=== PATIENT | male | born 1935 | race Caucasian/White ===

== ENCOUNTER 2018-12-13 18:16 | Observation (INO) ==
--- NOTE | 2018-12-13 22:09 | Internal Med History&Physical ---
<Michael Galindo - Last Filed: 12/13/18 22:56> Date of Encounter: 12/13/18 Time of Encounter: 22:15 Internal Medicine - H&P: HPI Chief complaint: Difficulty urinating Admitted From: Hospital to Hospital Transfer Plans for Post Hospital Care: Home History of present illness: Mr. Root is a 83 year old male with no significant medical history who presented to the hospital as a transfer from an outside facility for acute kidney injury. He states that for the past 3-4 days he has had constipation, straining and has had some rectal bleeding. In addition to this, he has had difficulty with urination and some lower abdominal pain. He has no significant medical history for anything like this in the past. He does not report any other symptoms like painful urination, fever, chills, sweats, or confusion. He has no chest pains, shortness of breath, or cough. He has no other acute complaints at this time. Significantly, He does say that he ate some grapefruit about 3-4 days ago and that is when his symptoms started. He's concerned that there may have been some chemicals on it. He did have some nausea after eating it. In the ED at the outside facility, the patient had labs significant for a serum creatinine of 2.6, WBC 12.7, and UA with blood. He had a CT abd/pelvis showing stranding anterior to the right iliopsoas muscle. In the ED he had a hensley placed with 1400mL UOP, which apparently relieved his abdominal pain. He was transferred to [facility] for further workup and management of MARIVEL and urinary obstruction. The patient is difficult to understand due to lack of dentures. Review of systems: Constitutional: Denies fevers, chills, weight loss, generalized fatigue Head/Neck: Denies SIU, neck stiffness EENT: Denies vision changes/blurriness, rhinorrhea, congestion, sore throat CVS: Denies chest pain, palpitations, YAO, orthopnea, edema, PND Pulm: Denies SOB, cough, sputum, hemoptysis, wheezing GI: Admits to abdominal tenderness, hematochezia, constiaption. Some nausea and vomiting a few days ago. : Denies dysuria, increased frequency, urgency, hematuria. Admits to hesitancy Heme: Denies ease of bleeding or bruising MSK: Denies joint pain, limited ROM Skin: Denies rashes, ulcers, color changes Neuro: Denies SIU, paresthesias, focal deficits, ataxia - Constitutional Vitals: Temp Pulse Resp BP Pulse Ox 99.0 F 71 16 115/71 96 12/13/18 22:00 12/13/18 22:00 12/13/18 22:00 12/13/18 22:00 12/13/18 22:00 Exam: Gen: Vitals noted. No acute distress. Speech is garbled from lack of dentures, but goal directed and sensical Eyes: anicteric sclerae, moist conjunctivae; no lid-lag; Pupils equal and reactive to light HENT: Atraumatic; oropharynx clear with moist mucous membranes and no mucosal ulcerations; normal hard and soft palate Neck: Trachea midline; supple, no thyromegaly or lymphadenopathy Cardiac: RRR, no murmur, +S1/S2 Pulmonary: CTA bilaterally, no wheezes, rales or rhonchi, equal chest expansion Abdomen: soft, nontender, no guarding. No masses or hepatosplenomegaly : Hensley in place MSK: ROM intact, no joint swelling noted Extremities: no BLE edema, nontender calf, no cyanosis or clubbing Skin: Normal temperature, turgor and texture; no rash, ulcers or subcutaneous nodules Neuro: moves all extremities, no focal deficits. Psych: Appropriate mood and behavior. A&Ox3 - Assessment and Plan (1) MARIVEL (acute kidney injury) Current Visit: Yes Status: Acute Assessment and plan: MARIVEL secondary to apparent bladder obstruction Unknown etiology, possibly secondary to prostatic enlargement Patient had Serum creatinine 2.6 at outside hospital, no history of kidney disease He does report taking ASA and Aleve for back pain Hensley relieved 1400mL urine Plan Continue hensley cath Begin LR @ 100mL/hr Avoid nephrotoxic agents Retroperitoneal US, Check for prostatic enlargement Repeat UA, check urine sodium/cr for FENA Repeat BMP in AM Consider nephro/urology consult if necessary (2) Constipation Current Visit: Yes Status: Acute Assessment and plan: Patient reports constipation Unclear etiology, however possible there is some dehydration component Patient will be receiving fluids Will start bowel regimen Qualifiers: Constipation type: unspecified constipation type Qualified Code(s): K59.00 - Constipation, unspecified (3) Urinary (tract) obstruction Current Visit: Yes Status: Acute Assessment and plan: 1400mL UOP with hensley insertion Retroperitoneal US in the AM for evidence of obstruction Consider urology/nephrology consult as needed (4) Hematochezia Current Visit: Yes Status: Acute Assessment and plan: Secondary to suspected hemorrhoids in setting of constipation (5) DVT prophylaxis Current Visit: Yes Status: Acute Assessment and plan: SCDs - Time Spent With Patient Total time spent is greater than 50% in coordination of care (as documented) at patient's floor/unit and/or counseling patient: <Go Soriano - Last Filed: 12/13/18 23:32> Date of Encounter: 12/13/18 All Systems PM: A 10-system review of systems was performed and is negative for pertinent findings except as documented above in the HPI. - Constitutional Vitals: Temp Pulse Resp BP Pulse Ox 99.0 F 71 16 115/71 96 12/13/18 22:00 12/13/18 22:00 12/13/18 22:00 12/13/18 22:00 12/13/18 22:00 - Time Spent With Patient Total time spent is greater than 50% in coordination of care (as documented) at patient's floor/unit and/or counseling patient: Greater than 35 minutes - Attending Attestation I performed a history and physical exam of the patient and discussed management with the resident. I reviewed the resident's note and agree with the documented findings and plan of care. Chuck Root is an 83 year old man who is here on transfer from [place] where he went with complaints of difficulty urinating. He required hensley insertion with immediate output of ~1400ml of urine with subsequent relief of his abdominal discomfort and distension. He denies a history of prostate problems. His creatinine was 2.6 so we will need to repeat for evolution as it is likely post-renal MARIVEL. While his CT did not identify any problems, it did not focus on the pelvis therefore will get a prostate ultrasound to assess for enlargement. Family history reviewed and found non-co ntributory. DORY REDD.
[2018-12-13] MEDS ORDERED: Naloxone 0.4 MG/ML INJ IVP PRN (22:29)
[2018-12-13] MEDS: Ringers Solution, Lactated 1,000 ML IVC SCH (23:14)
[2018-12-13] MEDS ORDERED: MOM Conc 10 ML UD.LIQ PO ONE (23:29)
[2018-12-14 03:26] LABS: Bilirubin,Urine Negative (Negative); Blood,Urine Large (Negative); Clarity,Urine Cloudy (Clear); Color,Urine Yellow (Yellow); Glucose,Urine (UA) Normal (Normal); Ketones,Urine Negative (Negative); Leukocyte Esterase,Urine Trace (Negative); Nitrite,Urine Negative (Negative); Protein,Urine 30 mg/dL (Neg-Trace); Specific Gravity,Urine 1.011 (1.010-1.025); Urobilinogen,Urine Normal (Normal)
[2018-12-14 03:29] LABS: Bacteria,Urine None Seen per hpf (None-Few); Hyaline Casts,Urine None Seen per lpf (None-Few); RBC,Urine TNTC per hpf (0-3); Squamous Epithelial Cell,Urine Moderate per lpf (None-Few)
[2018-12-14 03:35] LABS: Sodium, Urine 54.6 mEq/L
[2018-12-14 05:47] LABS: Basophils % 0.5 %; Eosinophils # 0.2 K/mcL (0.0-0.6); Eosinophils % 2.9 %; Hematocrit 38.9 % (37.5-50.1); Hemoglobin 13.1 g/dL (12.9-16.9); Immature Granulocytes % 0.4 % (0-4); Lymphocytes # 1.3 K/mcL (0.6-4.6); Mean Corpuscular HGB Conc 33.7 g/dL (31.6-35.5); Mean Corpuscular Hemoglobin 29.8 pg (28.0-33.3); Mean Corpuscular Volume 88.6 fL (83.0-100.0); Mean Platelet Volume 10.5 fL (9.4-12.4); Monocytes # 1.2 K/mcL (0.0-1.3); Monocytes % 14.8 %; Neutrophils # 5.1 K/mcL (1.6-8.9); Platelet Count 204 K/mcL (140-400); Red Blood Count 4.39 M/mcL (4.19-5.50); Red Cell Distribution Width 13.2 % (11.5-14.5); Segmented Neutrophils % 65.4 %; White Blood Count 7.8 K/mcL (4.3-11.1)
[2018-12-14 05:55] LABS: BUN/Creatinine Ratio 14 (6-26); Blood Urea Nitrogen 18 mg/dL (8-23); Calcium 8.9 mg/dL (8.6-10.3); Carbon Dioxide 28 mEq/L (23-29); Chloride 106 mEq/L (98-107); Glucose 100 mg/dL (70-105); Magnesium 2.3 mg/dL (1.6-2.6); Osmolality,Calculated 292 (280-300); Phosphorous 3.1 mg/dL (2.7-4.5); Potassium 3.7 mEq/L (3.5-5.1); Sodium 140 mEq/L (136-145); eGFR For African Americans > 60 (> 60); eGFR For Non-African Americans 53 (> 60)
[2018-12-14] MEDS: Ringers Solution, Lactated 1,000 ML IVC SCH (07:45)
[2018-12-14] MEDS: Sennosides/Docusate Sodium TABLET PO SCH ×2 (07:46→19:52)
--- NOTE | 2018-12-14 10:11 | Internal Med Progress Note ---
Hospitalist Progress Note - Encounter Date of Encounter: 12/14/18 Time of Encounter: 10:11 - Subjective Interval History: Patient was seen and examined at bedside. Discussed treatment plan with the patient which includes renal ultrasound possible urology consult. Continues to complain constipation we will continue with current regime. Patient verbalizes understanding treatment plan. - Exam Vitals: Temp Pulse Resp BP Pulse Ox 97.5 F L 67 20 121/75 98 12/14/18 08:13 12/14/18 08:13 12/14/18 08:13 12/14/18 08:13 12/14/18 08:13 Exam: Gen: Vitals noted. No acute distress. Speech is garbled from lack of dentures, but goal directed and sensical Eyes: anicteric sclerae, moist conjunctivae; no lid-lag; Pupils equal and reactive to light HENT: Atraumatic; oropharynx clear with moist mucous membranes and no mucosal ulcerations; normal hard and soft palate Neck: Trachea midline; supple, no thyromegaly or lymphadenopathy Cardiac: RRR, no murmur, +S1/S2 Pulmonary: CTA bilaterally, no wheezes, rales or rhonchi, equal chest expansion Abdomen: soft, nontender, no guarding. No masses or hepatosplenomegaly : Hernandez in place MSK: ROM intact, no joint swelling noted Extremities: no BLE edema, nontender calf, no cyanosis or clubbing Skin: Normal temperature, turgor and texture; no rash, ulcers or subcutaneous nodules Neuro: moves all extremities, no focal deficits. Psych: Appropriate mood and behavior. A&Ox3 - Assessment and Plan (1) MARIVEL (acute kidney injury) Current Visit: Yes Status: Acute Assessment and Plan: I MARIVEL secondary to apparent bladder obstruction Unknown etiology, possibly secondary to prostatic enlargement Patient had Serum creatinine 2.6 at outside hospital, no history of kidney disease He does report taking ASA and Aleve for back pain Hernandez relieved 1400mL urine in ED- cont to drain 12/14 Today creatinine slightly improved-1.28 Renal ultrasound pending at this time We will continue to monitor urine output as well as creatinine Consult nephrology as needed (2) Constipation Current Visit: Yes Status: Acute Assessment and Plan: Continues to experience constipation Continue with IV fluids as well as bowel regime (3) DVT prophylaxis Current Visit: Yes Status: Acute Assessment and Plan: SCD (4) Hematochezia Current Visit: Yes Status: Acute Assessment and Plan: Most likely secondary to constipation/hemorrhoids Continue to monitor hemoglobin which is stable at this time (5) Urinary (tract) obstruction Current Visit: Yes Status: Acute Assessment and Plan: 1400 and Lillian's urine output after Hernandez insertion in the ER-Hernandez continues to drain Retroperitoneal ultrasound pending at this time Urology/nephrology consult as needed - Time Spent with Patient Total time spent is greater than 50% in coordination of care (as documented) at patient's floor/unit and/or counseling patient: Internal Medicine: Result - Labs CBC & Chem 7: 12/14/18 05:07 12/14/18 05:07 Labs: Short CBC 12/14/18 Range/Units 05:07 WBC 7.8 (4.3-11.1) K/mcL Hgb 13.1 (12.9-16.9) g/dL Hct 38.9 (37.5-50.1) % Plt Count 204 (140-400) K/mcL Neutrophils # 5.1 (1.6-8.9) K/mcL BMP 12/14/18 05:07 Sodium 140 Potassium 3.7 Chloride 106 Carbon Dioxide 28 BUN 18 Creatinine 1.28 Glucose 100 Calcium 8.9 Urine 12/14/18 Range/Units 03:05 Urine Color Yellow (Yellow) Urine Clarity Cloudy A (Clear) Urine pH 6.0 (5.0-8.0) pH Units Ur Specific [place] 1.011 (1.010-1.025) Urine Protein 30 H (Neg-Trace) mg/dL Urine Glucose (UA) Normal (Normal) mg/dL Consult Discharge Plan - Plan Referrals: Shreyas Henley MD [Primary Care Provider] - (Appt has been requested. ) (2) Constipation Qualifiers: Constipation type: unspecified constipation type Qualified Code(s): K59.00 - Constipation, unspecified
--- NOTE | 2018-12-14 13:39 | Event Note ---
Date of Encounter: 12/14/18 Time of Encounter: 13:36 Nursing staff reports that patient had a BM with large amount of bright red blood in the toilet. Patient originally presented abd pain and rectal bleeding at outlying facility.Discussed with patient will GI eval patient
--- NOTE | 2018-12-14 14:18 | Urology - Consult Note ---
Date of Encounter: 12/14/18 Time of Encounter: 14:00 - Assessment and Plan (1) Urinary retention with incomplete bladder emptying Current Visit: Yes Status: Acute Assessment and plan: Patient is an 83-year-old male who presents with urinary retention and incomplete bladder emptying. Patient reports this is the first time he is ever required a urinary catheter. Patient has been started on Flomax daily. Patient underwent a reassuring renal and bladder ultrasound that did reveal an enlarged prostate. Patient does not routinely follow with a family physician, and there are no medical records available for review. I will order a PSA for baseline reference, and I anticipate his PSA to be somewhat elevated secondary to pr ostate volume, advanced age and an indwelling Hernandez catheter. Patient understands he will require an indwelling Hernandez catheter for approximately 1 week, and he will follow up with Dr. Gresham as an outpatient for a voiding trial prior to removal. Dr. Gresham will be in to reevaluate patient this afternoon. (2) MARIVEL (acute kidney injury) Current Visit: Yes Status: Acute Assessment and plan: Patient is an 83-year-old male who presents with acute kidney injury. Renal function appears to be improved with a serum creatinine of 1.28 and GFR 53. Renal function likely compromise secondary to outlet obstruction. Urology CN:HPI Consult date: 12/14/18 Reason for consult Urology: Other (urinary retention) Requesting physician: Roxane Salmeron History of present illness: Patient is an 83-year-old male who presents with a history of urinary retention. Hernandez catheter is currently indwelling and draining transparent, clear yellow urine sufficiently. Patient initially presented to [facility] emergency department with complaints of a 3-4 day history of constipation, rectal bleeding, dysuria and weak stream. Patient was found to have acute kidney injury and was subsequently transferred to [facility] for further evaluation. Patient underwent catheter placement with a urine output of 1.4 L. Patient has undergone a reassuring renal ultrasound revealing an enlarged prostate. Patient reports no prior history of urinary retention and states he has minimal voiding dysfunction at baseline. Patient reports nocturia 1 time per night, some post void dribbling and weak stream. Patient admits to a recent history of dysuria and urinary hesitancy, but he denies any flank pain, gross hematuria, urgency, frequency or incontinence. Patient states he underwent PSA screening approximately 15 years ago, and it was normal at that time. Patient denies any known family history of prostate cancer. Patient reports no significant past medical history and does not take any daily medications. Past Med Surg Social Fam HX - Past Medical History Medical history: no medical history Psychiatric history: no psych history - Past Surgical History Surgical History: no surgical history - Social History Smoking Status: Former smoker Alcohol use: occasionally Drug use: none - Additional Family History Additional family history: Patient denies known family history of malignancy Medications and Allergies Allergy/AdvReac Type Severity Reaction Status Date / Time No Known Allergies Allergy Verified 12/13/18 23:16 Review of Systems - Constitutional no chills, no fatigue, no fever(s) - EENT Nose, mouth and throat: no dizziness, no headache(s) - Cardiovascular no chest pain, no diaphoresis, no dyspnea - Respiratory no cough, no dyspnea - Gastrointestinal no abdominal pain, no nausea, no vomiting - Genitourinary change in urinary stream, difficulty urinating, dysuria, nocturia, post void dribbling, urinary hesitancy, no flank pain, no hematuria, no urinary frequency, no urinary incontinence, no urinary urgency - Musculoskeletal back pain, muscle weakness, other (arthritis ) - Integumentary no erythema, no rash - Neurological no confusion, no syncope - Psychiatric no anxiety, no confusion - Hematologic/Lymphatic no easy bleeding, no easy bruising - Allergic/Immunologic no throat swelling, no wheezing Exam Initial Vital Signs Temp Pulse Resp BP Pulse Ox 99.0 F 71 16 115/71 96 12/13/18 22:00 12/13/18 22:00 12/13/18 22:00 12/13/18 22:00 12/13/18 22:00 - General physical appearance Present: no distress, no pain - Eyes Present: PERRL, normal ocular movement - ENT Present: normal nares, no congestion, decreased hearing - Neck Present: no masses, trachea midline, no lymphadenopathy - Respiratory Present: normal respiratory effort - Cardiovascular Cardiovascular exam IM: RRR - Abdomen Abdomen: Present: soft, non tender, distended - Genitourinary other (Hernandez catheter is indwelling and draining transparent, clear yellow urine into bedside bag) - Integumentary Present: no rash, no abnormal pigmentation - Neurologic Present: normal coordination - Musculoskeletal Present: other (Normal posture) Urology Results - Labs 12/14/18 05:07 12/14/18 05:07 Abnormal lab results Est GFR (Non-Af Amer) 53 (> 60) L 12/14/18 05:07 Urine Clarity Cloudy (Clear) A 12/14/18 03:05 Urine Protein 30 mg/dL (Neg-Trace) H 12/14/18 03:05 Urine Blood Large (Negative) H 12/14/18 03:05 Ur Leukocyte Esterase Trace (Negative) H 12/14/18 03:05 Urine Microscopic RBC TNTC per hpf (0-3) H 12/14/18 03:05 Urine Microscopic WBC 5-15 per hpf (0-3) H 12/14/18 03:05 Ur Squamous Epith Cells Moderate per lpf (None-Few) H 12/14/18 03:05 Ur Culture Indicated? YES (NO) A 12/14/18 03:05 Diabetes panel 12/14/18 Range/Units 05:07 Sodium 140 (136-145) mEq/L Potassium 3.7 (3.5-5.1) mEq/L Chloride 106 (98-107) mEq/L Carbon Dioxide 28 (23-29) mEq/L BUN 18 (8-23) mg/dL Creatinine 1.28 (0.70-1.30) mg/dL Glucose 100 (70-105) mg/dL Calcium 8.9 (8.6-10.3) mg/dL Calcium panel 12/14/18 Range/Units 05:07 Calcium 8.9 (8.6-10.3) mg/dL Phosphorus 3.1 (2.7-4.5) mg/dL Pituitary panel 12/14/18 Range/Units 05:07 Sodium 140 (136-145) mEq/L Potassium 3.7 (3.5-5.1) mEq/L Chloride 106 (98-107) mEq/L Carbon Dioxide 28 (23-29) mEq/L BUN 18 (8-23) mg/dL Creatinine 1.28 (0.70-1.30) mg/dL Glucose 100 (70-105) mg/dL Calcium 8.9 (8.6-10.3) mg/dL Adrenal panel 12/14/18 Range/Units 05:07 Sodium 140 (136-145) mEq/L Potassium 3.7 (3.5-5.1) mEq/L Chloride 106 (98-107) mEq/L Carbon Dioxide 28 (23-29) mEq/L BUN 18 (8-23) mg/dL Creatinine 1.28 (0.70-1.30) mg/dL Glucose 100 (70-105) mg/dL Calcium 8.9 (8.6-10.3) mg/dL All other labs normal. - Imaging US - kidney/bladder: report reviewed Consult Discharge Plan - Plan Referrals: Shreyas Henley MD [Primary Care Provider] - (Appt has been requested. )
[2018-12-15 02:58] LABS: Basophils % 0.4 %; Eosinophils # 0.3 K/mcL (0.0-0.6); Eosinophils % 3.5 %; Hematocrit 39.2 % (37.5-50.1); Hemoglobin 13.1 g/dL (12.9-16.9); Immature Granulocytes % 0.3 % (0-4); Lymphocytes # 1.4 K/mcL (0.6-4.6); Lymphocytes % 18.4 %; Mean Corpuscular HGB Conc 33.4 g/dL (31.6-35.5); Mean Corpuscular Hemoglobin 29.2 pg (28.0-33.3); Mean Corpuscular Volume 87.5 fL (83.0-100.0); Monocytes # 1.1 K/mcL (0.0-1.3); Monocytes % 14.7 %; Neutrophils # 4.8 K/mcL (1.6-8.9); Platelet Count 208 K/mcL (140-400); Red Blood Count 4.48 M/mcL (4.19-5.50); Red Cell Distribution Width 13.2 % (11.5-14.5); Segmented Neutrophils % 62.7 %; White Blood Count 7.6 K/mcL (4.3-11.1)
[2018-12-15 03:21] LABS: BUN/Creatinine Ratio 21 (6-26); Blood Urea Nitrogen 21 mg/dL (8-23); Calcium 8.7 mg/dL (8.6-10.3); Carbon Dioxide 24 mEq/L (23-29); Chloride 105 mEq/L (98-107); Glucose 88 mg/dL (70-105); Osmolality,Calculated 288 (280-300); Potassium 3.4 mEq/L (3.5-5.1); Sodium 138 mEq/L (136-145); eGFR For African Americans > 60 (> 60); eGFR For Non-African Americans > 60 (> 60)
[2018-12-15] MEDS: Sennosides/Docusate Sodium TABLET PO SCH ×2 (11:19→19:48)
--- NOTE | 2018-12-15 11:51 | Urology Progress Note ---
Date of Encounter: 12/15/18 Time of Encounter: 11:15 - Assessment and Plan (1) Urinary retention with incomplete bladder emptying Current Visit: Yes Status: Acute Assessment and plan: Patient is an 83-year-old male who presents with urinary retention with incomplete bladder emptying. Patient is taking Flomax, and I explained he will need to continue this daily. I reviewed reassuring PSA results of 2.23 with patient. Patient will require a follow-up with Dr. Gresham within 1 week for a voiding trial. Catheter care instructions and leg bag with straps to be provided by nursing staff when patient is ready for discharge. (2) MARIVEL (acute kidney injury) Current Visit: Yes Status: Acute Assessment and plan: MARIVEL resolved with GFR >60. Progress Note Subjective: no new complaints Narrative: Patient seen and examined sitting upright in bed in no apparent distress. Hernandez catheter is indwelling and draining transparent, clear yellow urine into bedside bag. Objective Initial Vital Signs Temp Pulse Resp BP Pulse Ox 99.0 F 71 16 115/71 96 12/13/18 22:00 12/13/18 22:00 12/13/18 22:00 12/13/18 22:00 12/13/18 22:00 - General physical appearance Present: no distress, no pain - Respiratory Present: normal expansion, normal respiratory effort - Abdomen Present: soft, non tender. Absent: distended - Genitourinary Urine Appearance: Present: Clear - Integumentary Present: no rash, no abnormal pigmentation - Musculoskeletal Present: normal posture - Psychiatric Present: oriented to time, oriented to person, oriented to place, memory intact. Absent: speech is normal ([place]) - Labs 12/15/18 01:36 12/15/18 01:36 Diabetes panel 12/15/18 Range/Units 01:36 Sodium 138 (136-145) mEq/L Potassium 3.4 L (3.5-5.1) mEq/L Chloride 105 (98-107) mEq/L Carbon Dioxide 24 (23-29) mEq/L BUN 21 (8-23) mg/dL Creatinine 0.98 (0.70-1.30) mg/dL Glucose 88 (70-105) mg/dL Calcium 8.7 (8.6-10.3) mg/dL Calcium panel 12/15/18 Range/Units 01:36 Calcium 8.7 (8.6-10.3) mg/dL Pituitary panel 12/15/18 Range/Units 01:36 Sodium 138 (136-145) mEq/L Potassium 3.4 L (3.5-5.1) mEq/L Chloride 105 (98-107) mEq/L Carbon Dioxide 24 (23-29) mEq/L BUN 21 (8-23) mg/dL Creatinine 0.98 (0.70-1.30) mg/dL Glucose 88 (70-105) mg/dL Calcium 8.7 (8.6-10.3) mg/dL Adrenal panel 12/15/18 Range/Units 01:36 Sodium 138 (136-145) mEq/L Potassium 3.4 L (3.5-5.1) mEq/L Chloride 105 (98-107) mEq/L Carbon Dioxide 24 (23-29) mEq/L BUN 21 (8-23) mg/dL Creatinine 0.98 (0.70-1.30) mg/dL Glucose 88 (70-105) mg/dL Calcium 8.7 (8.6-10.3) mg/dL Consult Discharge Plan - Plan Referrals: Shreyas Henley MD [Primary Care Provider] - 12/23/18 1:00 pm ()
--- NOTE | 2018-12-15 12:38 | Gastroenterology Consult Note ---
Date of Encounter: 12/15/18 Time of Encounter: 10:25 - Assessment and plan (1) Hematochezia Current Visit: Yes Status: Acute Assessment and plan: Yesterday the patient had BM with large amount of bright red blood in toilet. Hgb 13.1 on admission and 13.1 today. Continue to monitor CBC and transfuse as needed. Plan for colonoscopy tomorrow. Clear liquid diet today, no red or purple. NPO at midnight. If unable tolerate NuLytely please use MiraLAX prep. If not clear by 6 AM, give 2 tap water enemas. (2) Constipation Current Visit: Yes Status: Acute Assessment and plan: Daily fiber supplement. Adequate water intake. Miralax up to twice daily as needed for constipation. Qualifiers: Constipation type: unspecified constipation type Qualified Code(s): K59.00 - Constipation, unspecified - Time Spent With Patient Total time spent is greater than 50% in coordination of care (as documented) at patient's floor/unit and/or counseling patient: GI History of Present Illness - Data of Consult Patient: new to practice Consult date: 12/15/18 Requesting Physician: Liliane Jones MD - Consult Narrative Reason for consult: Rectal bleeding History of present illness: Mr. Root is a 83 year old male with no PMHx presented to the hospital as a transfer from an outside facility for acute kidney injury. He states that for the past 3-4 days he has had constipation, straining and has had some rectal bleeding. Patient states he ate some grapefruit the day his symptoms started, and is concerned there are "chemicals" in his food. In addition to this, he has had difficulty with urination and some lower abdominal pain. In the ED hensley was placed with 1400mL UOP, which relieved his abdominal pain. Yesterday the patient had BM with large amount of bright red blood in toilet. Procedures: None NSAIDs: None Anticoagulation: None Past Med Surg Social Fam HX - Past Medical History Medical history: no medical history Psychiatric history: no psych history - Past Surgical History Surgical History: no surgical history - Social History Smoking Status: Former smoker Alcohol use: occasionally Drug use: none - Gastrointestinal Gastrointestinal: Present: as per HPI - Constitutional Constitutional: as per HPI - EENT Eyes: as per HPI Ears: Present: as per HPI Nose, mouth and throat: Present: as per HPI - Cardiovascular Cardiovascular ROS: Present: as per HPI - Respiratory Respiratory IM: Present: as per HPI - Genitourinary Genitourinary: Absent: change in color, Urinary frequency - Neurological ROS Neurological GI: Present: as per HPI - Hematologic/Lymphatic Hematologic/Lymphatic pediatric: Present: as per HPI - Musculoskeletal Musculoskeletal ROS GI: Present: as per HPI - Integumentary Integumentary GI: Present: as per HPI - Psychiatric ROS Psychiatric GI: Present: as per HPI - Endocrine Endocrine IM: Present: as per HPI - Constitutional Vitals: Temp Pulse Resp BP Pulse Ox 98.6 F 64 18 123/69 97 12/15/18 10:56 12/15/18 10:56 12/15/18 10:56 12/15/18 10:56 12/15/18 10:56 General appearance: Present: cooperative, A&O X 3, no acute distress, answers questions appropriately - Head Head exam: Present: atraumatic, normocephalic - Eye Eye exam: Present: normal appearance, sclera anicteric - ENT ENT exam: Present: mucous membranes moist - Neck Neck exam general surgery: Present: normal inspection, trachea midline - Respiratory Respiratory exam: Present: CTAB. Absent: rales, rhonchi - Cardiovascular Cardiovascular exam: Present: RRR, +S1, +S2 - GI/Abdominal GI/Abdominal exam: Present: soft, no peritoneal signs. Absent: distended, firm, guarding, tenderness - Rectal Rectal exam: Present: deferred - Extremities Exam Extremities exam: Present: warm - Neurological Exam Neurological exam: Present: no focal deficits - Psychiatric Psychiatric exam: Present: normal affect, normal mood - Skin Skin exam: Present: dry, intact, normal color, warm Results - Labs CBC & Chem 7: 12/15/18 01:36 12/15/18 01:36 Labs: Last Result 12/15/18 01:36 Calcium 8.7 Entire Visit 12/15/18 01:36 Hgb 13.1 Hct 39.2 - Impressions Impressions Retroperitoneum Ultrasound 12/14/18 10:30 IMPRESSION: 1. No abnormality in the kidneys. 2. Hensley catheter in the bladder. Prevoid bladder volume of 215 ml. Postvoid bladder volume of 119 ml. 3. Enlarged prostate gland measuring up to 6.4 cm. D/ / 12/14/2018 12:04:52 Parth Owens MD / romero Interpreting Provider: Parth Owens MD Consult Discharge Plan - Plan Referrals: Shreyas Henley MD [Primary Care Provider] - 12/23/18 1:00 pm ()
--- NOTE | 2018-12-15 13:37 | Internal Med Progress Note ---
Hospitalist Progress Note - Encounter Date of Encounter: 12/15/18 Time of Encounter: 11:00 - Subjective Interval History: Patient was seen and examined at bedside discussed treatment plan with the patient which includes continuation of Hernandez catheter following up with urology as well as GI evaluation and possible colonoscopy. Patient says that his bleed ing is caused by a bad grapefruit that had chemicals on it, explained to the patient that his bleeding has been going on for some time and we need to evaluate to make sure he has no malignancy or any other GI issues. Patient will be nothing by mouth after midnight patient verbalizes understanding he will have clear liquid diet today. - Exam Vitals: Temp Pulse Resp BP Pulse Ox 98.6 F 64 18 123/69 97 12/15/18 10:56 12/15/18 10:56 12/15/18 10:56 12/15/18 10:56 12/15/18 10:56 Exam: Gen: Vitals noted. No acute distress. Speech is garbled from lack of dentures, but goal directed and sensical Eyes: anicteric sclerae, moist conjunctivae; no lid-lag; Pupils equal and reactive to light HENT: Atraumatic; oropharynx clear with moist mucous membranes and no mucosal ulcerations; normal hard and soft palate Neck: Trachea midline; supple, no thyromegaly or lymphadenopathy Cardiac: RRR, no murmur, +S1/S2 Pulmonary: CTA bilaterally, no wheezes, rales or rhonchi, equal chest expansion Abdomen: soft, nontender, no guarding. No masses or hepatosplenomegaly : Hernandez in place MSK: ROM intact, no joint swelling noted Extremities: no BLE edema, nontender calf, no cyanosis or clubbing Skin: Normal temperature, turgor and texture; no rash, ulcers or subcutaneous nodules Neuro: moves all extremities, no focal deficits. Psych: Appropriate mood and behavior. A&Ox3 - Assessment and Plan (1) MARIVEL (acute kidney injury) Current Visit: Yes Status: Acute Assessment and Plan: I MARIVEL secondary to apparent bladder obstruction Unknown etiology, possibly secondary to prostatic enlargement Patient had Serum creatinine 2.6 at outside hospital, no history of kidney disease He does report taking ASA and Aleve for back pain Hernandez relieved 1400mL urine in ED- cont to drain 12/14 Today creatinine slightly improved-1.28 Renal ultrasound pending at this time We will continue to monitor urine output as well as creatinine Consult nephrology as needed 12/15 Creatinine is improved 0.98 today Renal ultrasound with no abnormalities in the kidneys and a large prostate gland measuring up to 6.4 cm Continue to monitor (2) Constipation Current Visit: Yes Status: Acute Assessment and Plan: Continues to experience constipation Continue with IV fluids as well as bowel regime 12/15 Patient had a large bowel movement yesterday per nursing report patient had a large amount of bright red blood in the toilet after a bowel movement (3) DVT prophylaxis Current Visit: Yes Status: Acute Assessment and Plan: SCD (4) Hematochezia Current Visit: Yes Status: Acute Assessment and Plan: Most likely secondary to constipation/hemorrhoids Continue to monitor hemoglobin which is stable at this time 12/15 Patient had a large bowel movement yesterday with large amount of bright red blood as well as/dark blood-according to the patient he has been experiencing constipation for 3 days with straining/ rectal bleeding Presented with lower abdominal pain-CT abd/pelvis showing stranding anterior to the right iliopsoas muscle.-Stool for occult blood GI has been consulted and patient will be nothing by mouth after midnight Received bowel prep for colonoscopy in the a.m. (5) Urinary (tract) obstruction Current Visit: Yes Status: Acute Assessment and Plan: 1400 and Lillian's urine output after Hernandez insertion in the ER-Hernandez continues to drain Retroperitoneal ultrasound pending at this time Urology/nephrology consult as needed 12/15 Retroperitoneal ultrasound IMPRESSION: 1. No abnormality in the kidneys. 2. Hernandez catheter in the bladder. Prevoid bladder volume of 215 ml. Postvoid bladder volume of 119 ml. 3. Enlarged prostate gland measuring up to 6.4 cm. Continue with Hernandez Urology did see the patient continue with Hernandez 1 week Continue with Tamsulosin - Time Spent with Patient Total time spent is greater than 50% in coordination of care (as documented) at patient's floor/unit and/or counseling patient: Internal Medicine: Result - Labs CBC & Chem 7: 12/15/18 01:36 12/15/18 01:36 Labs: Short CBC 12/15/18 Range/Units 01:36 WBC 7.6 (4.3-11.1) K/mcL Hgb 13.1 (12.9-16.9) g/dL Hct 39.2 (37.5-50.1) % Plt Count 208 (140-400) K/mcL Neutrophils # 4.8 (1.6-8.9) K/mcL BMP 12/15/18 01:36 Sodium 138 Potassium 3.4 L Chloride 105 Carbon Dioxide 24 BUN 21 Creatinine 0.98 Glucose 88 Calcium 8.7 - Impressions Impressions Retroperitoneum Ultrasound 12/14/18 10:30 IMPRESSION: 1. No abnormality in the kidneys. 2. Hernandez catheter in the bladder. Prevoid bladder volume of 215 ml. Postvoid bladder volume of 119 ml. 3. Enlarged prostate gland measuring up to 6.4 cm. D/ / 12/14/2018 12:04:52 Parth Owens MD / romero Interpreting Provider: Parth Owens MD Consult Discharge Plan - Plan Referrals: Shreyas Henley MD [Primary Care Provider] - 12/23/18 1:00 pm () (2) Constipation Qualifiers: Constipation type: unspecified constipation type Qualified Code(s): K59.00 - Constipation, unspecified
[2018-12-15] MEDS ORDERED: SODIUM CHLORIDE/NAHCO3/KCL/PEG 4,000 ML SOLN.RECON PO ONE (17:00)
[2018-12-16 06:19] LABS: Basophils % 0.6 %; Eosinophils # 0.2 K/mcL (0.0-0.6); Eosinophils % 2.6 %; Hematocrit 40.5 % (37.5-50.1); Hemoglobin 13.7 g/dL (12.9-16.9); Immature Granulocytes % 0.3 % (0-4); Lymphocytes # 1.2 K/mcL (0.6-4.6); Lymphocytes % 17.5 %; Mean Corpuscular HGB Conc 33.8 g/dL (31.6-35.5); Mean Corpuscular Hemoglobin 29.3 pg (28.0-33.3); Mean Corpuscular Volume 86.7 fL (83.0-100.0); Mean Platelet Volume 10.6 fL (9.4-12.4); Monocytes # 0.9 K/mcL (0.0-1.3); Monocytes % 13.7 %; Neutrophils # 4.3 K/mcL (1.6-8.9); Platelet Count 232 K/mcL (140-400); Red Blood Count 4.67 M/mcL (4.19-5.50); Red Cell Distribution Width 12.9 % (11.5-14.5); Segmented Neutrophils % 65.3 %; White Blood Count 6.6 K/mcL (4.3-11.1)
[2018-12-16 06:28] LABS: BUN/Creatinine Ratio 16 (6-26); Blood Urea Nitrogen 15 mg/dL (8-23); Calcium 8.8 mg/dL (8.6-10.3); Carbon Dioxide 26 mEq/L (23-29); Chloride 100 mEq/L (98-107); Glucose 94 mg/dL (70-105); Osmolality,Calculated 297 (280-300); Potassium 3.1 mEq/L (3.5-5.1); Sodium 143 mEq/L (136-145); eGFR For African Americans > 60 (> 60); eGFR For Non-African Americans > 60 (> 60)
[2018-12-16] MEDS ORDERED: Propofol 500 MG/50 ML INFUS..BTL ONE (06:59)
[2018-12-16] MEDS ORDERED: Lidocaine -MPF 2% 2 ML VIAL ONE (06:59)
--- NOTE | 2018-12-16 08:16 | Anesthesia Evaluation PreOp ---
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 Any Significant HX Other Medical History: Renal (acute kidney injury) Anesthesia History: No Prior Anesthetic Complications, Past Anesthesia (right shoulder) Alcohol Use: occasionally Drug use: none Medications and Allergies No Known Home Drugs 12/14/18 [History] Allergy/AdvReac Type Severity Reaction Status Date / Time No Known Allergies Allergy Verified 12/13/18 23:16 - Meds/Allergy Pre-op Review Medications Reviewed: Yes Allergies Reviewed: Yes Beta Blockers on Current Med List: No Anesthesia Results - Labs 12/16/18 05:19 12/16/18 05:19 Anesthesia Exam Selected Entries 12/16/18 08:05 Temperature 97.9 F Pulse Rate 64 Respiratory Rate 16 Blood Pressure 136/66 O2 Sat by Pulse Oximetry 100 Weight: 77kg NPO (# of Hours): 8 - HEENT Pupil (Motor): EOMI Mallampati: II Teeth: Edentulous Oral Opening: Greater than 3 - MEDICAL NUMERICAL CONTROL OPERATOR LOC: Oriented MEDICAL NUMERICAL CONTROL OPERATOR Motor: Normal RUE, Normal LUE, Normal RLE, Normal LLE, Normal Face MEDICAL NUMERICAL CONTROL OPERATOR Sensory: Normal: RUE, LUE, RLE, LLE, Face - Cardiac Rhythm: Regular Murmur: None - Pulmonary Breath Sounds: bilateral Clear Respiratory Effort: Symmetrical - Additional Findings speech is garbled due to being edentulous. Anesthesia Assess/Plan ASA Score: 2 Level of consciousness: Cooperative, Oriented Anesthetic Plan: MAC Monitoring Plan: Standard Monitors Recovery Plan: Other (Patient unable to read or write but is able to understand what we are doing. He gives verbal consent that is witnessed and he does place "X" on consent form.)
[2018-12-16] MEDS ORDERED: Potassium Chloride Elixir 20 MEQ/15 ML UDC PO ONE (11:36)
[2018-12-16] MEDS: Sennosides/Docusate Sodium TABLET PO SCH (13:31)
[2018-12-16 14:57] VITALS: BP 129/63
--- NOTE | 2018-12-16 15:14 | Discharge Summary ---
- NOTES TO OUTPATIENT PROVIDER Notes to Outpatient Provider: Urinary retention-Hernandez placed we will need to follow-up with urology 1 week-placed on Flomax. Had rectal bleeding-colonoscopy with large polyp removed biopsy pending Orders not resulted at time of discharge: Pending orders 12/16/18 09:03 Surgical Pathology [PTH] Routine 12/16/18 15:02 Potassium Stat Date of Encounter: 12/16/18 Time of Encounter: 15:12 - Discharge Diagnosis (1) MARIVEL (acute kidney injury) Priority: Secondary Status: Acute (2) Constipation Priority: Secondary Status: Acute Qualifiers: Constipation type: unspecified constipation type Qualified Code(s): K59.00 - Constipation, unspecified (3) Hematochezia Priority: Primary Status: Acute (4) Urinary (tract) obstruction Priority: Primary Status: Acute Hospital course: Mr. Root is a 83 year old male with no past medical history [facility] of [facility] abdominal pain -had had constipation for 3-4 days as well as some rectal bleeding and difficulty urinating and lower abdominal pain. Patient states he ate grapefruit about 3-4 days ago which he attributes to his symptoms he believes or chemicals on fruit and he had some nausea after eating at. Outlying facility his creatinine was elevated as well elevated white count. CT of abdomen and pelvis did show stranding anterior to the right ilopsoasas muscle. He had a Hernandez placed and 10 1400 mL return which relieved his abdominal pain. He was transferred to [facility] for further workup and AK I. He was given IV fluids and repeat chemistries showed improvement of AK I. He has evaluated by urology recommending continuing Hernandez for 1 week and placed on Flomax. During admission patient had a bowel movement with large amount of bright red blood. His hemoglobin had remained stable. GI was consulted patient did undergo colonoscopy and a large polyp was removed. Patient has not had any more abdominal pain has been tolerating oral intake lab work has been unremarkable renal function returned to baseline. Patient will be discharged home he will follow-up with urology as well as primary care provider as outpatient patient verbalizes understanding. He is hemodynamically stable and ready for discharge. - Time Spent with Patient Total time spent providing and/or coordinating discharge services: - Discharge Medications Prescriptions: New Tamsulosin [Flomax] 0.4 mg PO DAILY #30 capsule Polyethylene Glycol 3350 [MiraLAX] 17 gm PO DAILY PRN #30 powd.pack PRN Reason: Constipation Home Medications: Polyethylene Glycol 3350 [MiraLAX] 17 gm PO DAILY PRN #30 powd.pack 12/16/18 [Rx] Tamsulosin [Flomax] 0.4 mg PO DAILY #30 capsule 12/16/18 [Rx] Allergies/Adverse Reactions: Allergy/AdvReac Type Severity Reaction Status Date / Time No Known Allergies Allergy Verified 12/13/18 23:16 Date of admission: 12/13/18 21:48 Primary care physician: Shreyas Henley MD Consults: 12/14/18 13:34 Consult to Gastroenterology [CONS] Routine Consulting Provider: Gastroenterology Misti Reason for Consult: rectal bleeding Time Notified: 13:35 Call Completed: Yes 12/14/18 13:42 Consult to Urology [CONS] Routine Consulting Provider: Urology Misti Reason for Consult: urinary retention Time Notified: 13:42 Call Completed: Yes Discharging clinician: Roxane Salmeron Anticipated date of discharge: 12/16/18 - Constitutional Vitals: Temp Pulse Resp BP Pulse Ox 98.1 F 74 16 129/63 96 12/16/18 14:47 12/16/18 14:47 12/16/18 14:47 12/16/18 14:47 12/16/18 14:47 Exam: Skin: Free of rash and discoloration. Eyes: Sclera is white. There is no discharge from eyes. ENMT: Oral/pharyngeal mucosa is normal in appearance. Patient is endentulous There is no discharge from nose or ears. Respiratory: Normal breath sounds with no crackles and wheezes bilaterally. CV: Heart is regular with no gallop or murmur. GI: Abdomen is flat and soft with no palpable mass or visceromegaly. : There is no tenderness in patient's flanks bilaterally. Neuro exam: He has good strength in upper and lower extremities. He has normal eye movements. Psychiatric: He has normal affect. His thought process is appropriate to the situation. - Patient Status Disposition: Home, Self-Care Condition: Good Functional capacity at discharge: independent ambulation Overall status at discharge: patient is back to baseline - Discharge Instructions Follow Up With: Shreyas Henley MD [Primary Care Provider] - 12/23/18 1:00 pm () - Diet and Activity Activity: increase activity as tolerated Diet: advance to your usual diet
== END 2018-12-16 16:55 | disposition home or self-care (01) ==
LOC: 3BNU
PROVIDERS: ADMIT Internal Medicine; ATTEND Internal Medicine

== ENCOUNTER 2019-01-03 20:59 | Inpatient (IN) ==
[2019-01-03] MEDS ORDERED: Naloxone 0.4 MG/ML INJ IVP PRN ×2 (22:41)
--- NOTE | 2019-01-03 23:17 | Internal Med History&Physical ---
<Tian Shaffer - Last Filed: 01/04/19 08:24> Date of Encounter: 01/03/19 Internal Medicine - H&P: [facility] History of present illness: Mr. Root is a 83 year old male Internal Medicine - H&P: Meds Polyethylene Glycol 3350 [MiraLAX] 17 gm PO DAILY PRN #30 powd.pack 12/16/18 [Rx] Tamsulosin [Flomax] 0.4 mg PO DAILY #30 capsule 12/16/18 [Rx] Allergy/AdvReac Type Severity Reaction Status Date / Time No Known Allergies Allergy Verified 12/13/18 23:16 All Systems PM: A 10-system review of systems was performed and is negative for pertinent findings except as documented above in the HPI. - Constitutional Vitals: Temp Pulse Resp BP Pulse Ox 98.8 F 81 18 109/66 97 01/04/19 07:02 01/04/19 07:02 01/04/19 07:02 01/04/19 07:02 01/04/19 07:02 Internal Med - H&P Results - Labs CBC & Chem 7: 01/04/19 04:52 01/04/19 04:52 Labs: Short CBC 01/03/19 01/04/19 Range/Units 23:22 04:52 WBC 9.5 6.8 (4.3-11.1) K/mcL Hgb 13.6 12.2 L (12.9-16.9) g/dL Hct 40.1 36.2 L (37.5-50.1) % Plt Count 355 315 (140-400) K/mcL Neutrophils # 7.5 5.1 (1.6-8.9) K/mcL BMP 01/03/19 01/04/19 23:22 04:52 Sodium 137 140 Potassium 4.6 4.4 Chloride 104 113 H Carbon Dioxide 17 L 16 L BUN 99 H 71 H Creatinine 13.72 H 8.11 H Glucose 109 H 97 Calcium 9.4 8.9 Cardiac Enzymes 01/03/19 01/04/19 Range/Units 23:22 04:52 Troponin I < 0.03 < 0.03 (< 0.04) ng/mL Liver Function 01/04/19 Range/Units 04:52 Total Bilirubin 0.3 (0.3-1.0) mg/dL AST 7 L (13-39) Units/L ALT 7 (7-52) Units/L Alkaline Phosphatase 44 (34-104) Units/L Albumin 3.0 L (3.5-5.7) g/dL Urine 01/04/19 Range/Units 06:10 Urine Color Yellow (Yellow) Urine Clarity Clear (Clear) Urine pH 5.5 (5.0-8.0) pH Units Ur Specific [place] 1.015 (1.010-1.025) Urine Protein Negative (Neg-Trace) mg/dL Urine Glucose (UA) Normal (Normal) mg/dL - Impressions ITS Impressions Chest X-Ray 01/03/19 22:45 IMPRESSION: No acute cardiopulmonary findings. Bibasilar discoid atelectasis versus scarring. D/ / Luis Angel Hicks / Luis Angel Hicks Interpreting Provider: Luis Angel Hicks - Time Spent With Patient Total time spent is greater than 50% in coordination of care (as documented) at patient's floor/unit and/or counseling patient: - Attending Attestation I saw and evaluated the patient. I reviewed the residents note, performed my own physical examination and agree with findings and plan as documented in the residents note. Patient seen and examined on 01/04/19. Patient presented to the ER with rash in the inner thighs, back and chest. Started on antibiotics over the weekend which could be the source. No hives or respiratory symptoms. Patient has had improvement in his MARIVEL and creatinine as well. We will follow up with recommendations from urology and nephrology today. Continue to hold bactrim. Continue IV fluid boluses. <Everette Vee - Last Filed: 01/04/19 09:27> Date of Encounter: 01/04/19 Time of Encounter: 23:58 Internal Medicine - H&P: HPI History of present illness: Mr. Root is an 83-year-old male with no significant PMH who presented to [facility] on 01/03/19 as a transfer from Agency. Originally presented to Agency ED with sharp chest pain on inspiration. Also complained of a rash that had developed on Wednesday and was progressively getting worse. He was started on Bactrim on 12/22. He was noted to have a macular, red diffuse rash. He reports that the pain began gradually, and does not radiate. His initial vitals on arrival to Agency were temperature 99.8, pulse 75, respiratory rate 16, BP 108/75, and O2 saturation 95% on room air. Hernandez catheter was placed, which drained approximat joaquim 1000 mL of urine, which was maria elena colored. Labs showed Hb 12.5, BUN 120, and Cr 20.76. UA demonstrated red colored urine that was cloudy in appearance, with a large amount of blood, moderate amount of leukocyte esterase. D-dimer was elevated at 676. CXR demonstrated no evidence of PNA, CHF, or pleural effusion. His EKG demonstrated RBBB. Per chart review, patient had presented on 12/13 as a transfer from outside hospital for MARIVEL. He at the time, he had complained of constipation and had some rectal bleeding. Also reported difficulty in urination. His Cr was shown to be 2.6. Hernandez catheter was placed, which relieved 1400 mL of UOP. He was subsequently transferred to [place] for further management. Renal U/S demonstrated a prostate gland measuring 6.4 cm. Urology was consulted, who ordered a PSA for baseline reference and started patient on Flomax daily. Hernandez was left in place during last admission, and creatinine subsequently improved. Per urology progress note on 12/15, patient scheduled for a follow-up visit with Dr. Gresham within 1 week for a voiding trial. Per ECW note of Dr. Beckman on 12/22: Patient passed his voiding trial. He was prescribed Bactrim DS to sterilize his bladder. He was instructed to continue Flomax, and was instructed to follow up in 3-4 weeks with postvoid residual. During my interview, patient reported that he was having significant discomfort in the area of his rash. Rash is located on the inner aspect of both thighs. He denies having any suprapubic or abdominal pain. Also denies fever, chills, nausea, vomiting, or malaise. He reports that the last time he urinated was earlier in the day, and denies having any difficulty during that time. A repeat creatinine was drawn, which showed that his creatinine is improving from his original presentation to Agency. Our plan is to consult both nephrology and urology and follow recommendations. In the meantime, Bactrim will be held and we will administer fluid boluses for hydration. Past Med Surg Social Fam HX - Past Medical History Medical history: no medical history Psychiatric history: no psych history - Past Surgical History Surgical History: no surgical history - Social History Smoking Status: Former smoker Alcohol use: occasionally Drug use: none All Systems PM: A 10-system review of systems was performed and is negative for pertinent findings except as documented above in the HPI. - Constitutional Vitals: Temp Pulse Resp BP Pulse Ox 98.3 F 86 17 127/66 97 01/03/19 22:49 01/03/19 22:49 01/03/19 22:49 01/03/19 22:49 01/03/19 22:49 Exam: General: Conversant, somewhat difficult to understand due to lack of teeth Head: atraumatic, normocephalic Eye: PERRL, EOMI, conjuntiva pink, sclera anicteric Neck: Supple, trachea midline; No lymphadenopathy Respiratory: CTAB. No accessory muscle use, wheezes, rales, or rhonchi Cardiovascular: RRR, +S1, +S2; no murmurs, rubs, gallops Abdomen: Soft, nontender Extremities: warm, radial pulses palpable and symmetrical Neurological: No focal deficits noted Psychiatric: Normal affect, normal mood Skin: Macular rash present on medial aspect of thighs bilaterally, upper chest and neck, and upper back Other: Hernandez bag observed at bedside; contains approximately 700 mL of orange- colored urine Internal Med - H&P Results - Labs CBC & Chem 7: 01/04/19 04:52 01/04/19 04:52 - Assessment and Plan (1) MARIVEL (acute kidney injury) Current Visit: Yes Status: Acute Assessment and plan: Assessment - Likely secondary to bladder obstruction - Patient had a recent admission with a similar presentation; was found to have an enlarged prostate - Followed up with urology and passed a voiding test - Initial creatinine was the 20s, has since decreased to 13 Plan - Continue Hernandez catheter - Urinalysis ordered and currently pending - Normal saline at 100 mL per hour - We will continue to administer fluid boluses - Renally dose medications, avoid nephrotoxins - Nephrology and urology consulted for further recommendations (2) Skin rash Current Visit: Yes Status: Acute Assessment and plan: - Patient presented with a macular rash present on the inner thighs, upper back, bilateral flanks, and upper chest - He reports that this rash appeared shortly after he started his antibiotic - He was prescribed Bactrim in the outpatient setting by urology to sterilize his bladder - He denies having a rash like this in the past - Denies itching or pain in the area, but does complain of some mild discomfort Plan - Hold Bactrim - Administer Benadryl if needed (3) DVT prophylaxis Current Visit: Yes Status: Acute Assessment and plan: Heparin SQ - Time Spent With Patient Total time spent is greater than 50% in coordination of care (as documented) at patient's floor/unit and/or counseling patient:
[2019-01-03 23:35] LABS: Basophils % 0.2 %; Eosinophils # 0.2 K/mcL (0.0-0.6); Eosinophils % 1.9 %; Hematocrit 40.1 % (37.5-50.1); Hemoglobin 13.6 g/dL (12.9-16.9); Immature Granulocytes % 0.3 % (0-4); Lymphocytes # 0.8 K/mcL (0.6-4.6); Lymphocytes % 7.9 %; Mean Corpuscular HGB Conc 33.9 g/dL (31.6-35.5); Mean Corpuscular Hemoglobin 28.9 pg (28.0-33.3); Mean Corpuscular Volume 85.3 fL (83.0-100.0); Mean Platelet Volume 10.2 fL (9.4-12.4); Monocytes % 10.3 %; Neutrophils # 7.5 K/mcL (1.6-8.9); Platelet Count 355 K/mcL (140-400); Red Cell Distribution Width 13.2 % (11.5-14.5); Segmented Neutrophils % 79.4 %; White Blood Count 9.5 K/mcL (4.3-11.1)
[2019-01-03 23:48] LABS: INR 1.2; Prothrombin Time 13.3 Seconds (9.4-12.1)
[2019-01-03 23:54] LABS: Calcium 9.4 mg/dL (8.6-10.3); Potassium 4.6 mEq/L (3.5-5.1)
[2019-01-04] MEDS: 0.9 % Sodium Chloride 1,000 ML IVC SCH ×2 (00:46→10:06)
[2019-01-04 05:23] LABS: Basophils % 0.1 %; Eosinophils # 0.2 K/mcL (0.0-0.6); Eosinophils % 2.6 %; Hematocrit 36.2 % (37.5-50.1); Hemoglobin 12.2 g/dL (12.9-16.9); Immature Granulocytes % 0.4 % (0-4); Lymphocytes # 0.6 K/mcL (0.6-4.6); Lymphocytes % 8.4 %; Mean Corpuscular HGB Conc 33.7 g/dL (31.6-35.5); Mean Corpuscular Hemoglobin 28.7 pg (28.0-33.3); Mean Corpuscular Volume 85.2 fL (83.0-100.0); Mean Platelet Volume 10.3 fL (9.4-12.4); Monocytes # 0.9 K/mcL (0.0-1.3); Monocytes % 13.2 %; Neutrophils # 5.1 K/mcL (1.6-8.9); Platelet Count 315 K/mcL (140-400); Red Blood Count 4.25 M/mcL (4.19-5.50); Red Cell Distribution Width 13.2 % (11.5-14.5); Segmented Neutrophils % 75.3 %; White Blood Count 6.8 K/mcL (4.3-11.1)
[2019-01-04 05:36] LABS: Albumin/Globulin Ratio 0.9 (1.1-2.2); Bilirubin,Total 0.3 mg/dL (0.3-1.0); Calcium 8.9 mg/dL (8.6-10.3); Globulin 3.2 g/dL (2.4-3.5); Magnesium 2.3 mg/dL (1.6-2.6); Phosphorous 4.4 mg/dL (2.7-4.5); Potassium 4.4 mEq/L (3.5-5.1); Total Protein 6.2 g/dL (6.4-8.9)
[2019-01-04 06:25] LABS: Bilirubin,Urine Negative (Negative); Blood,Urine Moderate (Negative); Clarity,Urine Clear (Clear); Color,Urine Yellow (Yellow); Glucose,Urine (UA) Normal (Normal); Ketones,Urine 15 mg/dL (Negative); Leukocyte Esterase,Urine Negative (Negative); Nitrite,Urine Negative (Negative); PH,Urine 5.5 pH Units (5.0-8.0); Protein,Urine Negative (Neg-Trace); Specific Gravity,Urine 1.015 (1.010-1.025); Urobilinogen,Urine Normal (Normal)
[2019-01-04 06:27] LABS: Bacteria,Urine None Seen per hpf (None-Few); Hyaline Casts,Urine None Seen per lpf (None-Few); Squamous Epithelial Cell,Urine Few per lpf (None-Few)
[2019-01-04 06:34] LABS: Sodium, Urine 73.2 mEq/L
--- NOTE | 2019-01-04 08:45 | Urology - Consult Note ---
<Rayne Goss N - Last Filed: 01/04/19 08:40> Date of Encounter: 01/04/19 Time of Encounter: 07:40 - Assessment and Plan (1) MARIVEL (acute kidney injury) Current Visit: Yes Status: Acute Assessment and plan: Patient is an 83-year-old male who presents with acute kidney injury secondary to bladder outlet obstruction and urinary retention. Hernandez catheter is indwelling and draining sufficiently. Serum creatinine has improved from 13.72 to 8.11. (2) Urinary retention with incomplete bladder emptying Current Visit: Yes Status: Acute Assessment and plan: Patient is an 83-year-old male who presents with urinary retention. Hernandez catheter is indwelling and draining sufficiently. PSA was previously reassuring at 2.2. 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 His tamsulosin could be increased to twice daily, however, given his age and unsteadiness, I would be concerned for increased fall risk with the side effect of dizziness. Patient will require indwelling Hernandez catheter for at least one week, and we will arrange for an outpatient follow-up with Dr. Gresham to further discuss management options for his retention. Urology CN:HPI Consult date: 01/04/19 Reason for consult Urology: Other (urinary retention) Requesting physician: Everette Vee History of present illness: Patient is an 83-year-old male who presents with urinary retention and acute kidney injury. Patient initially presented to [facility] where a catheter was placed in the emergency department draining over 1 L of urine. Patient was subsequently transferred to [facility]. Patient was recently admitted to the hospital for urinary retention and hematochezia and discharged on 12/16/2018. 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 Patient followed up as an outpatient with Dr. Gresham on 12/22/2018 where he underwent a voiding trial and was placed on oral Bactrim. Patient presents with a rash, possibly a drug eruption from the oral Bactrim. Patient admits to ongoing urinary hesitancy, postvoid dribbling and weak stream. Patient states he has been taking Flomax daily. Currently, patient is sitting upright in bed in no apparent distress, and Hernandez catheter is indwelling draining transparent, clear yellow urine into bedside bag. Past Med Surg Social Fam HX - Past Medical History Medical history: no medical history Psychiatric history: no psych history - Past Surgical History Surgical History: no surgical history - Social History Smoking Status: Former smoker Alcohol use: none, occasionally Drug use: none - Additional Family History Additional family history: Patient denies any known family history of malignancy Medications and Allergies Tamsulosin [Flomax] 0.4 mg PO DAILY #30 capsule 12/16/18 [Rx] Allergy/AdvReac Type Severity Reaction Status Date / Time sulfamethoxazole AdvReac See Verified 01/04/19 12:13 [From Bactrim] Comments trimethoprim [From Bactrim] AdvReac See Verified 01/04/19 12:13 Comments Review of Systems - Constitutional no chills, no fever(s) - EENT Nose, mouth and throat: no dizziness, no headache(s) - Cardiovascular no chest pain, no diaphoresis, no dyspnea - Respiratory no cough, no dyspnea - Gastrointestinal no abdominal pain, no nausea, no vomiting - Genitourinary difficulty urinating, nocturia, post void dribbling, urinary frequency, urinary hesitancy, urinary incontinence, urinary urgency, no dysuria, no flank pain, no hematuria - Musculoskeletal no back pain, no muscle weakness - Integumentary no erythema, no rash - Neurological no confusion, no syncope - Psychiatric no anxiety, no confusion - Hematologic/Lymphatic no easy bleeding, no easy bruising - Allergic/Immunologic no throat swelling, no wheezing Exam Initial Vital Signs Temp Pulse Resp BP Pulse Ox 98.3 F 86 17 127/66 97 01/03/19 22:49 01/03/19 22:49 01/03/19 22:49 01/03/19 22:49 01/03/19 22:49 - General physical appearance Present: no distress, no pain - Eyes Present: PERRL, normal ocular movement - ENT Present: no congestion, decreased hearing - Neck Present: no masses, trachea midline, no lymphadenopathy - Cardiovascular Cardiovascular exam IM: RRR - Abdomen Abdomen: Present: soft, non tender. Absent: distended - Genitourinary other (Hernandez catheter is indwelling and draining transparent, serial urine into bedside bag) - Integumentary Present: no rash, no abnormal pigmentation - Neurologic Present: normal coordination - Musculoskeletal Present: other (Normal posture) Urology Results - Labs 01/04/19 04:52 01/04/19 04:52 Abnormal lab results Hgb 12.2 g/dL (12.9-16.9) L 01/04/19 04:52 Hct 36.2 % (37.5-50.1) L 01/04/19 04:52 PT 13.3 Seconds (9.4-12.1) H 01/03/19 23:22 Chloride 113 mEq/L (98-107) H 01/04/19 04:52 Carbon Dioxide 16 mEq/L (23-29) L 01/04/19 04:52 BUN 71 mg/dL (8-23) H 01/04/19 04:52 Creatinine 8.11 mg/dL (0.70-1.30) H 01/04/19 04:52 Est GFR ( Amer) 8 (> 60) L 01/04/19 04:52 Est GFR (Non-Af Amer) 6 (> 60) L 01/04/19 04:52 Glucose 109 mg/dL (70-105) H 01/03/19 23:22 Calculated Osmolality 311 (280-300) H 01/04/19 04:52 AST 7 Units/L (13-39) L 01/04/19 04:52 Creatine Kinase 29 Units/L (30-223) L 01/04/19 04:52 B-Natriuretic Peptide 241 pg/mL (Less than 100) H 01/04/19 04:52 Serum Total Protein 6.2 g/dL (6.4-8.9) L 01/04/19 04:52 Albumin 3.0 g/dL (3.5-5.7) L 01/04/19 04:52 Albumin/Globulin Ratio 0.9 (1.1-2.2) L 01/04/19 04:52 Urine Ketones 15 mg/dL (Negative) H 01/04/19 06:10 Urine Blood Moderate (Negative) H 01/04/19 06:10 Urine Microscopic RBC 5-15 per hpf (0-3) H 01/04/19 06:10 Urine Microscopic WBC 3-5 per hpf (0-3) H 01/04/19 06:10 Diabetes panel 01/03/19 01/04/19 Range/Units 23:22 04:52 Sodium 137 140 (136-145) mEq/L Potassium 4.6 4.4 (3.5-5.1) mEq/L Chloride 104 113 H (98-107) mEq/L Carbon Dioxide 17 L 16 L (23-29) mEq/L BUN 99 H 71 H (8-23) mg/dL Creatinine 13.72 H 8.11 H (0.70-1.30) mg/dL Glucose 109 H 97 (70-105) mg/dL Calcium 9.4 8.9 (8.6-10.3) mg/dL AST 7 L (13-39) Units/L ALT 7 (7-52) Units/L Alkaline Phosphatase 44 (34-104) Units/L Albumin 3.0 L (3.5-5.7) g/dL Calcium panel 01/03/19 01/04/19 Range/Units 23:22 04:52 Calcium 9.4 8.9 (8.6-10.3) mg/dL Phosphorus 4.4 (2.7-4.5) mg/dL Albumin 3.0 L (3.5-5.7) g/dL Pituitary panel 01/03/19 01/04/19 Range/Units 23:22 04:52 Sodium 137 140 (136-145) mEq/L Potassium 4.6 4.4 (3.5-5.1) mEq/L Chloride 104 113 H (98-107) mEq/L Carbon Dioxide 17 L 16 L (23-29) mEq/L BUN 99 H 71 H (8-23) mg/dL Creatinine 13.72 H 8.11 H (0.70-1.30) mg/dL Glucose 109 H 97 (70-105) mg/dL Calcium 9.4 8.9 (8.6-10.3) mg/dL Adrenal panel 01/03/19 01/04/19 Range/Units 23:22 04:52 Sodium 137 140 (136-145) mEq/L Potassium 4.6 4.4 (3.5-5.1) mEq/L Chloride 104 113 H (98-107) mEq/L Carbon Dioxide 17 L 16 L (23-29) mEq/L BUN 99 H 71 H (8-23) mg/dL Creatinine 13.72 H 8.11 H (0.70-1.30) mg/dL Glucose 109 H 97 (70-105) mg/dL Calcium 9.4 8.9 (8.6-10.3) mg/dL Total Bilirubin 0.3 (0.3-1.0) mg/dL AST 7 L (13-39) Units/L ALT 7 (7-52) Units/L Alkaline Phosphatase 44 (34-104) Units/L Albumin 3.0 L (3.5-5.7) g/dL All other labs normal. Consult Discharge Plan - Plan Referrals: NONE,PCP [Primary Care Provider] - <Nithin Farrell - Last Filed: 01/04/19 16:41> Date of Encounter: 01/04/19 Urology CN:HPI History of present illness: Patient was seen and examined independently. I agree with the plan as written by aRyne Goss. At this time the patient has what appears to be obstructive uropathy which has caused his acute renal insufficiency. Serum creatinine improving after catheter drainage of approximately 2200 mL. Patient will need to keep his catheter at this time. No indication or need for upper tract imaging unless serum creatinine fails to resolve. We will continue to follow along while patient in hospital. Past Med Surg Social Fam HX - Past Medical History Additional medical history: Urinary retention - Family History Father Name: Patient denies any known family history of prostate cancer Exam Initial Vital Signs Temp Pulse Resp BP Pulse Ox 98.3 F 86 17 127/66 97 01/03/19 22:49 01/03/19 22:49 01/03/19 22:49 01/03/19 22:49 01/03/19 22:49 Urology Results - Labs 01/04/19 15:52 01/04/19 04:52 Abnormal lab results RBC 4.00 M/mcL (4.19-5.50) L 01/04/19 15:52 Hgb 11.5 g/dL (12.9-16.9) L 01/04/19 15:52 Hct 34.8 % (37.5-50.1) L 01/04/19 15:52 PT 13.6 Seconds (9.4-12.1) H 01/04/19 15:52 Heparin Anti-Xa, Unfract 0.01 IU/mL (0.30-0.70) L 01/04/19 15:52 Chloride 113 mEq/L (98-107) H 01/04/19 04:52 Carbon Dioxide 16 mEq/L (23-29) L 01/04/19 04:52 BUN 71 mg/dL (8-23) H 01/04/19 04:52 Creatinine 8.11 mg/dL (0.70-1.30) H 01/04/19 04:52 Est GFR ( Amer) 8 (> 60) L 01/04/19 04:52 Est GFR (Non-Af Amer) 6 (> 60) L 01/04/19 04:52 Glucose 109 mg/dL (70-105) H 01/03/19 23:22 Calculated Osmolality 311 (280-300) H 01/04/19 04:52 AST 7 Units/L (13-39) L 01/04/19 04:52 Creatine Kinase 27 Units/L (30-223) L 01/04/19 10:40 B-Natriuretic Peptide 241 pg/mL (Less than 100) H 01/04/19 04:52 Serum Total Protein 6.2 g/dL (6.4-8.9) L 01/04/19 04:52 Albumin 3.0 g/dL (3.5-5.7) L 01/04/19 04:52 Albumin/Globulin Ratio 0.9 (1.1-2.2) L 01/04/19 04:52 Urine Ketones 15 mg/dL (Negative) H 01/04/19 06:10 Urine Blood Moderate (Negative) H 01/04/19 06:10 Urine Microscopic RBC 5-15 per hpf (0-3) H 01/04/19 06:10 Urine Microscopic WBC 3-5 per hpf (0-3) H 01/04/19 06:10 Diabetes panel 01/03/19 01/04/19 Range/Units 23:22 04:52 Sodium 137 140 (136-145) mEq/L Potassium 4.6 4.4 (3.5-5.1) mEq/L Chloride 104 113 H (98-107) mEq/L Carbon Dioxide 17 L 16 L (23-29) mEq/L BUN 99 H 71 H (8-23) mg/dL Creatinine 13.72 H 8.11 H (0.70-1.30) mg/dL Glucose 109 H 97 (70-105) mg/dL Calcium 9.4 8.9 (8.6-10.3) mg/dL AST 7 L (13-39) Units/L ALT 7 (7-52) Units/L Alkaline Phosphatase 44 (34-104) Units/L Albumin 3.0 L (3.5-5.7) g/dL Calcium panel 01/03/19 01/04/19 Range/Units 23:22 04:52 Calcium 9.4 8.9 (8.6-10.3) mg/dL Phosphorus 4.4 (2.7-4.5) mg/dL Albumin 3.0 L (3.5-5.7) g/dL Pituitary panel 01/03/19 01/04/19 Range/Units 23:22 04:52 Sodium 137 140 (136-145) mEq/L Potassium 4.6 4.4 (3.5-5.1) mEq/L Chloride 104 113 H (98-107) mEq/L Carbon Dioxide 17 L 16 L (23-29) mEq/L BUN 99 H 71 H (8-23) mg/dL Creatinine 13.72 H 8.11 H (0.70-1.30) mg/dL Glucose 109 H 97 (70-105) mg/dL Calcium 9.4 8.9 (8.6-10.3) mg/dL Adrenal panel 01/03/19 01/04/19 Range/Units 23:22 04:52 Sodium 137 140 (136-145) mEq/L Potassium 4.6 4.4 (3.5-5.1) mEq/L Chloride 104 113 H (98-107) mEq/L Carbon Dioxide 17 L 16 L (23-29) mEq/L BUN 99 H 71 H (8-23) mg/dL Creatinine 13.72 H 8.11 H (0.70-1.30) mg/dL Glucose 109 H 97 (70-105) mg/dL Calcium 9.4 8.9 (8.6-10.3) mg/dL Total Bilirubin 0.3 (0.3-1.0) mg/dL AST 7 L (13-39) Units/L ALT 7 (7-52) Units/L Alkaline Phosphatase 44 (34-104) Units/L Albumin 3.0 L (3.5-5.7) g/dL All other labs normal.
--- NOTE | 2019-01-04 09:22 | Nephrology Consult Note ---
Date of Encounter: 01/04/19 Time of Encounter: 10:58 Assessment and Plan (1) MARIVEL (acute kidney injury) Current Visit: Yes Status: Acute This an 83-year-old male with no significant past medical history who initially presented to [facility] has a transfer from [facility]. - Complained of abdominal pain and urinary retention on admission - Hensley catheter was placed in the ED, and drained nearly 1000 mL of maria elena colored urine. Initial BMP showed BUN/Cr = 120/20.76 - Urinalysis did not show red colored urine, cloudy in appearance, with large blood, moderate leukocyte esterase - BMP after Hensley catheter placed and urine voided showed creatinine = 13 - Recent admission on 12/13 due to acute kidney injury. Patient had been compl aining with difficulty with urination and that time. Hensley catheter was placed and relieved 1400 mL of urine. Renal ultrasound done which showed enlarged prostate. Patient was started on Flomax and discharged with Hensley catheter in place. Followed up with urology 1 week later and successfully completed voiding trial. Hensley was DC'd. - Patient has had significant urine output as of this morning. - BUN/Cr = 71/8.11 as of this a.m. - Patient remains asymptomatic - Urinalysis essentially negative. Did show moderate blood and microscopic RBCs. No signs of infection. - Urology on board regarding enlarged prostate PLAN: Chuck presents with acute kidney injury which is likely secondary to urinary retention due to enlarged prostate. Patient did experience relief with Hensley catheter placement and after voiding. Creatinine and kidney function has improved since then. Baseline GFR is greater than 60. Given relief with Hensley catheter, kidney injury likely secondary to post renal obstruction. - Continue to monitor kidney function. Repeat BMP in the a.m. - Urology on board. Recommendations appreciated. Continue with Flomax and finasteride - Otherwise continue with IV fluids - Given patient's previously normal kidney function, no further workup needed at this time - With worsening kidney function, may consider further workup - Monitor I's and O's - Avoid nephrotoxins - Renally dose medications - Renal diet History of Present Illness - Reason for Consult Consult date: 01/04/19 Acute Kidney Injury (MARIVEL; history of MARIVEL secondary to obstruction in the past) Requesting physician: Everette Vee - Chief Complaint Rash - History of Present Illness This an 83-year-old male with no significant past medical history who initially presented to [facility] has a transfer from [facility]. On patient's initial presentation to [facility] ED, patient was complaining of sharp chest pain on inspiration. He additionally complained of a rash that had developed 5 days ago and was progressively getting worse. Rash described is macular, red, diffuse, located on the inner aspect of both thighs. Patient did recently start Bactrim on 12/22. While in the ED, patient's vitals were hemodynamically stable. A Hensley catheter was placed in the ED, and drained nearly 1000 mL of maria elena colored urine. Initial BMP showed BUN/Cr = 120/20.76. Urinalysis did not show red colored urine, cloudy in appearance, with large blood, moderate leukocyte esterase. Subsequent BMP after Hensley catheter placed and urine voided showed creatinine = 13. Otherwise, EKG, troponin, CXR were negative. Patient does have recent admission on 12/13 due to acute kidney injury. At that time, patient had been complaining of difficulty with urination. Serum creatinine = 2.6 at that time. Hensley catheter was placed and relieved 1400 mL of urine. Further evaluation including renal ultrasound showed enlarged prostate gland. Urology did recommend starting patient on Flomax daily, and patient was discharged with Hensley catheter in place. He did follow up with urology outpatient one week later, and passed a voiding trial. At that time, patient was prescribed Bactrim DS in order sterilized bladder. This morning, patient is significantly improved. Reports no acute complaints at this time. Urine output has been adequate via hensley cath throughout the day. BUN/Cr improved after hensley cath placement. Draining yellow urine. There are a few clots noted at bottom of hensley cath bag. Otherwise, vitals stable. Patient in no acute distress. Doing well. 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 Past Med Surg Social Fam HX - Past Medical History Attestation: Yes The following information was validated with the patient. Source: patient, old records reviewed, obtained from family Medical history: no medical history Psychiatric history: no psych history - Past Surgical History Surgical History: no surgical history - Social History Smoking Status: Former smoker Alcohol use: none, occasionally Drug use: none - Family History Father Name: Patient denies any known family history of prostate cancer Medications and Allergies Tamsulosin [Flomax] 0.4 mg PO DAILY #30 capsule 12/16/18 [Rx] Allergy/AdvReac Type Severity Reaction Status Date / Time sulfamethoxazole AdvReac See Verified 01/04/19 12:13 [From Bactrim] Comments trimethoprim [From Bactrim] AdvReac See Verified 01/04/19 12:13 Comments Review of Systems Constitutional: no chills, no fatigue, no headache(s), no lethargy, no malaise, no weakness Nose, mouth and throat: no dizziness, no neck pain Cardiovascular: no chest pain, no chest pain at rest, no diaphoresis, no dyspnea, no edema, no irregular heart rhythm, no radiating jaw, neck or arm pain, no lightheadedness Respiratory: no cough, no dyspnea, no hemoptysis Gastrointestinal: no abdominal pain, no nausea, no vomiting Genitourinary Male: difficulty urinating, no dysuria, no flank pain, no hematuria Musculoskeletal: back pain, no stiffness, no tingling Integumentary: rash Neurological: no confusion, no dizziness, no headache(s), no syncope, no weakness Psychiatric: no behavioral changes, no confusion, no depression, no hopelessness, no irritability Endocrine: no fatigue Hematologic/Lymphatic: no easy bleeding, no easy bruising Exam - Vital Signs Vital signs: Initial Vital Signs Temp Pulse Resp BP Pulse Ox 98.3 F 86 17 127/66 97 01/03/19 22:49 01/03/19 22:49 01/03/19 22:49 01/03/19 22:49 01/03/19 22:49 Vital Signs - Last 8 Hours Temp Pulse Resp BP Pulse Ox 01/04/19 07:02 98.8 F 81 18 109/66 97 01/04/19 04:08 99.1 F 91 17 113/70 95 Intake and Output 01/03/19 01/04/19 01/04/19 23:59 07:59 15:59 Intake Total 0 / 0 Output Total 2250 / 2250 Balance -2250 / -2250 Intake: Oral 0 / 0 Output: Catheter 2250 / 2250 Other: Weight 75.5 kg - General Appearance General appearance: well-developed, well-nourished, appears started age Exam: Well-appearing 83-year-old male who is resting comfortably at bedside in no acute distress. Accompanied by visitor at bedside. EENT: ATNC, PERRL, mucous membranes moist, hearing intact Additional Comments: Speech difficult to understand. (Speech difficult to understand at baseline). Neck: no JVD Respiratory: clear Cardiology: no murmurs, no rub, no gallops, no edema, regular rate, regular rhythm, normal S1, normal S2 Gastrointestinal: normoactive bowel sounds, no tenderness, no guarding, no organomegaly, no masses Integumentary: rash Additional Comments: Rash noted on bilateral lower extremities. Diffuse, erythematous, macular. Neurologic: no focal deficit, alert and oriented x3, strength 5/5, CN 3-12 intact Musculoskeletal: no erythema, erythema, no cyanosis, no clubbing Psychiatric: mood/affect appropriate Results - Lab Results 01/04/19 15:52 01/04/19 04:52 Most recent lab results 01/03/19 01/04/19 01/04/19 23:22 04:52 06:10 Calcium 9.4 8.9 Phosphorus 4.4 Magnesium 2.3 Urine Creatinine 153 Urine Sodium 73.2 Consult Discharge Plan - Plan Referrals: NONE,PCP [Primary Care Provider] -
[2019-01-04] MEDS ORDERED: 0.9 % Sodium Chloride 1,000 ML IVC ONE (09:28)
[2019-01-04] MEDS: Finasteride 5 MG TABLET PO SCH (10:04)
[2019-01-04] MEDS: Ringers Solution, Lactated 1,000 ML IVC SCH ×2 (10:06→20:42)
[2019-01-04] MEDS ORDERED: *HR* Metoprolol 5 MG/5 ML VIAL IVP ONE ×3 (14:32→19:02)
[2019-01-04] MEDS ORDERED: 0.9 % Sodium Chloride 500 ML ONE (14:36)
[2019-01-04] MEDS ORDERED: *HR* Heparin 5,000 UNIT/ML VIAL IVP PRN ×2 (15:21)
--- NOTE | 2019-01-04 16:13 | Internal Med Progress Note ---
Hospitalist Progress Note - Encounter Date of Encounter: 01/04/19 Time of Encounter: 08:00 - Subjective Interval History: Patient was seen this a.m. He denied chest pain, shortness of breath or palpitation. No nausea/vomiting or abdominal pain. - Exam Vitals: Temp Pulse Resp BP Pulse Ox 98.5 F 71 18 120/70 98 01/04/19 11:27 01/04/19 11:27 01/04/19 11:27 01/04/19 11:27 01/04/19 11:27 Exam: General: Patient is alert, oriented 3. Head: Atraumatic, normal inspection, normocephalic. Eye: EOMI, PERRLA, no scleral icterus noted. ENT: Mucous membranes moist. No odontogenic infection noted. Neck: Normal inspection, no meningismus. Respiratory: No respiratory distress, rhonchi, or wheezes noted. Cardiovascular: Regular rate and regular rhythm, S1 and S2 audible. No murmurs, rubs, or gallops. GI: Soft, nondistended, normal bowel sounds. Extremities:No joint swelling, pedal edema, or tenderness noted. Neurological: Alert, oriented 3, no focal deficits. Psychiatric: normal affect, normal mood. Skin: Macular popular rash over his lower abdomen, inner thighs - Assessment and Plan (1) Atrial fibrillation with RVR Current Visit: Yes Status: Acute (2) MARIVEL (acute kidney injury) Current Visit: Yes Status: Acute (3) Skin rash Current Visit: Yes Status: Acute (4) Urinary retention with incomplete bladder emptying Current Visit: Yes Status: Acute - Summary of Assessment and Plan Summary of Assessment and Plan: 83-year-old male with history of urinary retention, prostatomegaly who came in to the hospital as a transfer from [place] after he presented with chest pain, and generalized skin rash. Patient had a history of urinary retention and he was admitted to the hospital last month when he was discharged home on Flomax and indwelling urinary catheter. He followed with urology as outpatient and he passed a voiding trial. However, he noted decrease in his urination along with abdominal distention. When he presented to the ER, Hernandez was placed and 1400 mL of urine was drained. His symptoms were managed as following: Urinary retention: - 2/2 BPH as per urology. His PSA last visit was 2.2. - She has no symptoms of prostatitis, is hemodynamically stable, and afebrile. He has no leukocytosis. - Patient was compliant with his Flomax. We will continue and add finasteride. - As per urology, he would require indwelling Hernandez catheter for at least one week and arrange for outpatient follow-up. MARIVEL: - 2/2 above - Creatinine was 13.7 at admission, today 8.1 - I/O -1300. Nephrology is consulted - Continue with Ringer lactate at rate of 125 mL per hour - Check BMP tomorrow. Continue renal diet A. fib with RVR: - Paroxysmal, new onset. - Patient responded to 500 mL bolus and 1 dose of IV push Lopressor - TTE ordered, troponin is pending, continue surveillance system monitor, consult cardiology. - Started the patient on heparin drip, will check pricing for anticoagulation if cardiology agrees given patient's low CHADvasc2 score - We will start on 12.5 mg po lopressor. Skin rash: -likely allergic reaction to BACTRIM. - will continue to monitor. DVT PPX: on heparin gtt. I reviewed independently all laboratory workup, pertinent images including x- rays and CT scans. I also reviewed independently and EKGs and my findings are in the body of my assessment and plan. I ordered the laboratory workup and images myself. I discussed finding with patient's, their families, RN's and consultants involved in the care of the patient. - Time Spent with Patient Total time spent is greater than 50% in coordination of care (as documented) at patient's floor/unit and/or counseling patient: Plan of Care Discussed with: patient Internal Medicine: Result - Labs CBC & Chem 7: 01/04/19 04:52 01/04/19 04:52 Labs: Short CBC 01/03/19 01/04/19 Range/Units 23:22 04:52 WBC 9.5 6.8 (4.3-11.1) K/mcL Hgb 13.6 12.2 L (12.9-16.9) g/dL Hct 40.1 36.2 L (37.5-50.1) % Plt Count 355 315 (140-400) K/mcL Neutrophils # 7.5 5.1 (1.6-8.9) K/mcL BMP 01/03/19 01/04/19 23:22 04:52 Sodium 137 140 Potassium 4.6 4.4 Chloride 104 113 H Carbon Dioxide 17 L 16 L BUN 99 H 71 H Creatinine 13.72 H 8.11 H Glucose 109 H 97 Calcium 9.4 8.9 Cardiac Enzymes 01/03/19 01/04/19 01/04/19 Range/Units 23:22 04:52 10:40 Troponin I < 0.03 < 0.03 < 0.03 (< 0.04) ng/mL Liver Function 01/04/19 Range/Units 04:52 Total Bilirubin 0.3 (0.3-1.0) mg/dL AST 7 L (13-39) Units/L ALT 7 (7-52) Units/L Alkaline Phosphatase 44 (34-104) Units/L Albumin 3.0 L (3.5-5.7) g/dL Urine 01/04/19 Range/Units 06:10 Urine Color Yellow (Yellow) Urine Clarity Clear (Clear) Urine pH 5.5 (5.0-8.0) pH Units Ur Specific [place] 1.015 (1.010-1.025) Urine Protein Negative (Neg-Trace) mg/dL Urine Glucose (UA) Normal (Normal) mg/dL - ABG Interpretation ABG results: PT/INR, D-dimer PT 13.3 Seconds (9.4-12.1) H 01/03/19 23:22 - Impressions Impressions Chest X-Ray 01/03/19 22:45 IMPRESSION: No acute cardiopulmonary findings. Bibasilar discoid atelectasis versus scarring. D/ / Luis Angel Hicks / Luis Angel Hicks Interpreting Provider: Luis Angel Hicks Consult Discharge Plan - Plan Referrals: NONE,PCP [Primary Care Provider] -
[2019-01-04 16:27] LABS: Hematocrit 34.8 % (37.5-50.1); Hemoglobin 11.5 g/dL (12.9-16.9); Heparin anti-factor XA UFH 0.01 IU/mL (0.30-0.70); INR 1.2; Mean Corpuscular Hemoglobin 28.8 pg (28.0-33.3); Mean Platelet Volume 10.5 fL (9.4-12.4); Platelet Count 288 K/mcL (140-400); Prothrombin Time 13.6 Seconds (9.4-12.1); Red Cell Distribution Width 13.3 % (11.5-14.5); White Blood Count 6.3 K/mcL (4.3-11.1)
[2019-01-04] MEDS: Heparin 25,000 UNIT/250 ML D5W 25,000 UNIT/250 ML IV.SOLN IVC SCH (17:03)
[2019-01-04] MEDS ORDERED: Perflutren Lipid Microsphere 1.3 ML in 0.9 % Sodium Chloride 8.7 ML IVP ONE (20:39)
[2019-01-05 05:48] LABS: Hematocrit 34.5 % (37.5-50.1); Hemoglobin 11.6 g/dL (12.9-16.9); Mean Corpuscular HGB Conc 33.6 g/dL (31.6-35.5); Mean Corpuscular Hemoglobin 29.2 pg (28.0-33.3); Mean Corpuscular Volume 86.9 fL (83.0-100.0); Mean Platelet Volume 10.5 fL (9.4-12.4); Platelet Count 272 K/mcL (140-400); Red Blood Count 3.97 M/mcL (4.19-5.50); Red Cell Distribution Width 13.4 % (11.5-14.5); White Blood Count 5.2 K/mcL (4.3-11.1)
[2019-01-05 06:18] LABS: BUN/Creatinine Ratio 17 (6-26); Blood Urea Nitrogen 18 mg/dL (8-23); Calcium 8.9 mg/dL (8.6-10.3); Carbon Dioxide 20 mEq/L (23-29); Chloride 111 mEq/L (98-107); Glucose 93 mg/dL (70-105); Osmolality,Calculated 302 (280-300); Sodium 145 mEq/L (136-145); eGFR For African Americans > 60 (> 60); eGFR For Non-African Americans > 60 (> 60)
[2019-01-05] MEDS: Finasteride 5 MG TABLET PO SCH (08:18)
[2019-01-05] MEDS: Ringers Solution, Lactated 1,000 ML IVC SCH (08:21)
[2019-01-05 08:33] LABS: Estimated Average Glucose 108 mg/dl
--- NOTE | 2019-01-05 08:46 | Urology Progress Note ---
<Rayne Goss N - Last Filed: 01/05/19 08:43> Date of Encounter: 01/05/19 Time of Encounter: 07:55 - Assessment and Plan (1) MARIVEL (acute kidney injury) Current Visit: Yes Status: Acute Assessment and plan: Patient is an 83-year-old male who presents with MARIVEL secondary to BPH with urinary retention and bladder outlet obstruction. Renal function has fully recovered with a GFR greater than 60. (2) Urinary retention with incomplete bladder emptying Current Visit: Yes Status: Acute Assessment and plan: Patient is an 83-year-old male who presents with urinary retention. Patient may be discharged with an indwelling Hernandez catheter, and nursing staff will please provide catheter leg bag and straps. Patient will require a follow-up with Dr. Gresham within 1 week of discharge with a possible voiding trial. Patient to continue Flomax and finasteride. Progress Note Narrative: Patient seen and examined sitting upright in bed in no apparent distress. Hernandez catheter is indwelling and draining transparent, clear yellow urine into bedside bag. Patient reports no new urologic concerns or questions. Objective Initial Vital Signs Temp Pulse Resp BP Pulse Ox 98.3 F 86 17 127/66 97 01/03/19 22:49 01/03/19 22:49 01/03/19 22:49 01/03/19 22:49 01/03/19 22:49 - General physical appearance Present: no distress, no pain - Respiratory Present: normal expansion, normal respiratory effort - Abdomen Present: soft, non tender. Absent: distended - Genitourinary Present: other (Hernandez catheter is indwelling and draining transparent, clear yellow urine into bedside bag) Urine Appearance: Present: Clear - Integumentary Present: no rash, no abnormal pigmentation - Musculoskeletal Present: normal posture - Psychiatric Present: oriented to time, oriented to person, oriented to place, speech is normal, memory intact - Labs 01/05/19 04:52 01/05/19 04:52 Diabetes panel 01/05/19 01/05/19 Range/Units 04:52 04:52 Sodium 145 (136-145) mEq/L Potassium 4.0 (3.5-5.1) mEq/L Chloride 111 H (98-107) mEq/L Carbon Dioxide 20 L (23-29) mEq/L BUN 18 (8-23) mg/dL Creatinine 1.08 (0.70-1.30) mg/dL Glucose 93 (70-105) mg/dL Hemoglobin A1c 5.4 ( - 5.6) % Calcium 8.9 (8.6-10.3) mg/dL Calcium panel 01/05/19 Range/Units 04:52 Calcium 8.9 (8.6-10.3) mg/dL Pituitary panel 01/05/19 Range/Units 04:52 Sodium 145 (136-145) mEq/L Potassium 4.0 (3.5-5.1) mEq/L Chloride 111 H (98-107) mEq/L Carbon Dioxide 20 L (23-29) mEq/L BUN 18 (8-23) mg/dL Creatinine 1.08 (0.70-1.30) mg/dL Glucose 93 (70-105) mg/dL Calcium 8.9 (8.6-10.3) mg/dL Adrenal panel 01/05/19 Range/Units 04:52 Sodium 145 (136-145) mEq/L Potassium 4.0 (3.5-5.1) mEq/L Chloride 111 H (98-107) mEq/L Carbon Dioxide 20 L (23-29) mEq/L BUN 18 (8-23) mg/dL Creatinine 1.08 (0.70-1.30) mg/dL Glucose 93 (70-105) mg/dL Calcium 8.9 (8.6-10.3) mg/dL Consult Discharge Plan - Plan Referrals: NONE,PCP [Primary Care Provider] - <Nithin Farrell - Last Filed: 01/05/19 15:23> Date of Encounter: 01/05/19 Progress Note Narrative: Patient was seen and examined independent. I grabbed the plan as written by Rayne Goss. Patient serum creatinine has returned to normal. Good urine output. Patient okay to discharge from urology standpoint. Keep catheter in place and follow up with Dr. Gresham in 1-2 weeks. Objective Initial Vital Signs Temp Pulse Resp BP Pulse Ox 98.3 F 86 17 127/66 97 01/03/19 22:49 01/03/19 22:49 01/03/19 22:49 01/03/19 22:49 01/03/19 22:49 - Labs 01/05/19 04:52 01/05/19 04:52 Diabetes panel 01/05/19 01/05/19 Range/Units 04:52 04:52 Sodium 145 (136-145) mEq/L Potassium 4.0 (3.5-5.1) mEq/L Chloride 111 H (98-107) mEq/L Carbon Dioxide 20 L (23-29) mEq/L BUN 18 (8-23) mg/dL Creatinine 1.08 (0.70-1.30) mg/dL Glucose 93 (70-105) mg/dL Hemoglobin A1c 5.4 ( - 5.6) % Calcium 8.9 (8.6-10.3) mg/dL Calcium panel 01/05/19 Range/Units 04:52 Calcium 8.9 (8.6-10.3) mg/dL Pituitary panel 01/05/19 Range/Units 04:52 Sodium 145 (136-145) mEq/L Potassium 4.0 (3.5-5.1) mEq/L Chloride 111 H (98-107) mEq/L Carbon Dioxide 20 L (23-29) mEq/L BUN 18 (8-23) mg/dL Creatinine 1.08 (0.70-1.30) mg/dL Glucose 93 (70-105) mg/dL Calcium 8.9 (8.6-10.3) mg/dL Adrenal panel 01/05/19 Range/Units 04:52 Sodium 145 (136-145) mEq/L Potassium 4.0 (3.5-5.1) mEq/L Chloride 111 H (98-107) mEq/L Carbon Dioxide 20 L (23-29) mEq/L BUN 18 (8-23) mg/dL Creatinine 1.08 (0.70-1.30) mg/dL Glucose 93 (70-105) mg/dL Calcium 8.9 (8.6-10.3) mg/dL
--- NOTE | 2019-01-05 08:56 | Nephrology Progress Note ---
Date of Encounter: 01/05/19 Time of Encounter: 08:56 - Assessment and Plan (1) MARIVEL (acute kidney injury) Current Visit: Yes Status: Acute Patient with acute kidney injury secondary to obstructive uropathy. His renal function has returned normal. Urology is following for the urinary obstruction. He is having a postobstructive diuresis so I think he would benefit from saline to ensure that he does not get dehydrated. Otherwise he can follow with urology for his obstruction. Since his renal function has returned to almost normal we will defer to his primary manager progressive care to determine if he needs any further nephrologic workup. We will sign off. Thank you for this interesting consult. (2) Urinary retention with incomplete bladder emptying Current Visit: Yes Status: Acute Subjective Principal diagnosis: marivel Interval history: The patient was seen. He has no new complaints. He was to go home. His review of system overall stable. Objective - Vital Signs Vital signs: Vital Signs Temp Pulse Resp BP Pulse Ox 01/05/19 07:06 97.9 F 71 18 131/86 95 01/05/19 04:07 98.9 F 68 18 125/65 97 01/05/19 00:41 98.3 F 59 16 120/63 96 01/04/19 20:41 92 01/04/19 19:14 98.2 F 129 19 119/72 92 01/04/19 16:39 99.4 F 81 18 127/73 97 01/04/19 11:27 98.5 F 71 18 120/70 98 Intake and Output 01/04/19 01/05/19 01/05/19 23:59 07:59 15:59 Intake Total 1307.8 / 1307.8 1075.5 / 1075.5 Output Total 1400 / 4950 1300 / 1300 Balance -92.2 / -3642.2 -224.5 / -224.5 Intake: IV Fluids 1067.8 / 1067.8 1075.5 / 1075.5 Heparin 25,000 UNIT/250 ML D5W 67.8 / 67.8 75.5 / 75.5 25,000 unit In 250 ml @ 14 UNIT /KG/HR 10.57 mls/hr IVC . [id number] JOYCELYN Rx#:[id number] Lactated Ringers 1,000 ML @ 100 1000 / 1000 1000 / 1000 mls/hr IVC .Q10H JOYCELYN Rx#: [id number] Oral 240 / 240 Output: Urine 375 / 375 Catheter 1400 / 4950 925 / 925 Other: Meal Dinner Percent of Meal Consumed 50% Weight 75 kg Patient Weight 01/05/19 23:59 Weight 75 kg - General Appearance General appearance: Present: well-developed, well-nourished EENT: Present: ATNC Neck: Present: supple Cardiology: Present: regular rate Neurologic: Present: alert and oriented x3 Musculoskeletal: Present: no cyanosis Psychiatric: Present: mood/affect appropriate - Lab 01/05/19 04:52 01/05/19 04:52 Most recent lab results 01/05/19 04:52 Calcium 8.9 Consult Discharge Plan - Plan Referrals: NONE,PCP [Primary Care Provider] -
[2019-01-05] MEDS ORDERED: 0.9 % Sodium Chloride 1,000 ML IVC SCH (09:00)
--- NOTE | 2019-01-05 09:32 | Cardiology Consult Note ---
<Ethan Peters R - Last Filed: 01/05/19 09:32> Date of Encounter: 01/05/19 Time of Encounter: 09:31 Assessment and Plan (1) Atrial fibrillation with RVR Current Visit: Yes Status: Acute New diagnosis of PAF. Now back in SR. Troponin negative x 4. K, Mag WNL. Check TSH. Agree with BB--Lopressor 12.5mg BID. TTE LVEF 60%. Basal sigmoid septum. Mild LVDD. Normal RV structure and function. Mild MR. No phtn. Currently on heparin gtt. [id number] 2 (age). High CVA risk. Would recommend full AC. Discussed R/B/A to AC with pt and he seemed confused at times. Will black check NOAC. Will discuss and review with Dr. Logan. Discussion w patient/family: The assessment and plan as outlined above was discussed with the patient and/or family members who expressed understanding and agreement. All questions were ans wered. Thank you for involving us in the care of your patient. Please call with any questions. I will discuss all the above with Dr. Logan and make changes as necessary. History of Present Illness Consult date: 01/05/19 Consult reason: A-Fib Chief complaint: chest pain History of present illness: Mr. Root is a 83 year old male with no significant PMH who presented to [facility] on 01/03/19 as a transfer from [place]. Originally presented to [facility] ED with sharp chest pain on inspiration and a rash that had developed on Wednesday and was progressively getting worse. Labs showed BUN 120, and Cr 20.76. MARIVEL secondary to BPH with urinary retention and bladder outlet obstruction. Renal function has fully recovered. Pt was then noted to have new onset A-Fib, since converted back to SR. He denies recurrent chest pain. Denies palpitations or dyspnea. Cardiology consulted for further recs. Troponins negative x 4. TTE LVEF 60%. Basal sigmoid septum. Mild left ventricular diastolic dysfunction. Normal right ventricular structure and function. Mild mitral regurgitation. No pulmonary hypertension. Past Med Surg Social Fam HX - Past Medical History Medical history: no medical history Additional medical history: Urinary retention Psychiatric history: no psych history - Past Surgical History Surgical History: no surgical history - Social History Smoking Status: Former smoker Alcohol use: none, occasionally Drug use: none - Family History Father Name: Patient denies any known family history of prostate cancer Medications and Allergies Tamsulosin [Flomax] 0.4 mg PO DAILY #30 capsule 12/16/18 [Rx] Allergy/AdvReac Type Severity Reaction Status Date / Time sulfamethoxazole AdvReac See Verified 01/04/19 12:13 [From Bactrim] Comments trimethoprim [From Bactrim] AdvReac See Verified 01/04/19 12:13 Comments All Systems Review: The remainder of the systems were reviewed and are negative - Cardiovascular Cardiovascular: as per HPI, chest pain at rest Physical Examination Vital Signs, Last 4 Hours Temp Pulse Resp BP Pulse Ox 01/05/19 07:06 97.9 F 71 18 131/86 95 Vital Signs Temp Pulse Resp BP Pulse Ox 01/05/19 07:06 97.9 F 71 18 131/86 95 01/05/19 04:07 98.9 F 68 18 125/65 97 01/05/19 00:41 98.3 F 59 16 120/63 96 01/04/19 20:41 92 01/04/19 19:14 98.2 F 129 19 119/72 92 01/04/19 16:39 99.4 F 81 18 127/73 97 01/04/19 11:27 98.5 F 71 18 120/70 98 Intake and Output 01/04/19 01/05/19 01/05/19 23:59 07:59 15:59 Intake Total 1307.8 / 1307.8 1075.5 / 1075.5 Output Total 1400 / 4950 1300 / 1300 Balance -92.2 / -3642.2 -224.5 / -224.5 Intake: IV Fluids 1067.8 / 1067.8 1075.5 / 1075.5 Heparin 25,000 UNIT/250 ML D5W 67.8 / 67.8 75.5 / 75.5 25,000 unit In 250 ml @ 14 UNIT /KG/HR 10.57 mls/hr IVC . [id number] JOYCELYN Rx#:[id number] Lactated Ringers 1,000 ML @ 100 1000 / 1000 1000 / 1000 mls/hr IVC .Q10H JOYCELYN Rx#: [id number] Oral 240 / 240 Output: Urine 375 / 375 Catheter 1400 / 4950 925 / 925 Other: Meal Dinner Percent of Meal Consumed 50% Weight 75 kg Patient Weight 01/05/19 23:59 Weight 75 kg General: Conversant, No Apparent Distress HEENT: Atraumatic, Normocephaly, Mucus Membranes Moist Neck: No JVD, Normal carotid pulses Cardiac: Reg Rate and Rhythm, Normal S1 and S2, No Murmur Lungs: Normal Breath Sounds, No Wheeze, Rales, Rhonchi Neuro: Alert and responsive, No focal deficits noted Abdomen: Soft, Non-Tender Skin: No rashes noted on visualized skin Musculoskeletal: No Chest Wall Tenderness Extremities: No Clubbing, No Cyanosis, No Edema, Normal Pulses Results 01/05/19 04:52 01/05/19 04:52 Lab Results 01/04/19 01/04/19 01/04/19 10:40 15:52 15:52 WBC 6.3 Hgb 11.5 L Hct 34.8 L Plt Count 288 INR 1.2 Sodium Potassium Chloride Carbon Dioxide BUN Creatinine Glucose Calcium Troponin I < 0.03 01/04/19 01/05/19 01/05/19 15:52 04:52 04:52 WBC 5.2 Hgb 11.6 L Hct 34.5 L Plt Count 272 INR Sodium 145 Potassium 4.0 Chloride 111 H Carbon Dioxide 20 L BUN 18 Creatinine 1.08 Glucose 93 Calcium 8.9 Troponin I < 0.03 Short CBC 01/05/19 01/04/19 Range/Units 04:52 15:52 WBC 5.2 6.3 (4.3-11.1) K/mcL Hgb 11.6 L 11.5 L (12.9-16.9) g/dL Hct 34.5 L 34.8 L (37.5-50.1) % Plt Count 272 288 (140-400) K/mcL BMP 01/05/19 Range/Units 04:52 Sodium 145 (136-145) mEq/L Potassium 4.0 (3.5-5.1) mEq/L Chloride 111 H (98-107) mEq/L Carbon Dioxide 20 L (23-29) mEq/L BUN 18 (8-23) mg/dL Creatinine 1.08 (0.70-1.30) mg/dL Glucose 93 (70-105) mg/dL Calcium 8.9 (8.6-10.3) mg/dL Cardiac Enzymes 01/04/19 01/04/19 Range/Units 15:52 10:40 Troponin I < 0.03 < 0.03 (< 0.04) ng/mL Impressions Echocardiogram 01/04/19 15:15 Impressions: LVEF 60%. Basal sigmoid septum. Mild left ventricular diastolic dysfunction. Normal right ventricular structure and function. Mild mitral regurgitation. No pulmonary hypertension. Left Ventricular Wall Motion: Rest Echo Findings All wall segments showed normal motion. Findings: Study Quality * Technically adequate exam. ECG Findings * Normal sinus rhythm. Left Ventricle * LVEF 60%. * Basal sigmoid septum. * Mild left ventricular diastolic dysfunction. * LV chamber size is normal. Right Ventricle * Normal right ventricular structure and function. Left Atrium * Moderately dilated left atrium. Right Atrium * Normal right atrial size. Aortic Valve * Trace aortic regurgitation. * Aortic valve leaflets not well visualized. * Moderately calcified aortic valve leaflets. * No aortic stenosis. Mitral Valve * No mitral stenosis. * Mild mitral regurgitation. * Normal mitral valve structure. Tricuspid Valve * Tricuspid valve not well visualized. * No tricuspid regurgitation. Pulmonic Valve * Pulmonic valve is not well visualized. * No pulmonic stenosis. * No pulmonic regurgitation. Pulmonary Artery * Pulmonary artery not well visualized. Aorta * Normally sized aortic root. Pericardium * There is no pericardial effusion present. Interatrial Septum * No evidence of PFO by color Doppler. IVC * Normal IVC dimensions and inspiratory collapse. Active Medications Finasteride (Proscar) 5 mg PO DAILY PENDING SALE TO [facility]; Protocol Stop: 07/06/19 09:01 Last Admin: 01/05/19 08:18 Dose: 5 mg Documented by: Heparin Sodium (Porcine) (Heparin) 5,300 unit 70 unit/kg (5300 unit) IVP Q6HR PRN PRN Reason: SEE COMMENTS Stop: 07/06/19 15:22 Heparin Sodium (Porcine) (Heparin) 2,600 unit 35 unit/kg (2600 unit) IVP Q6H PRN PRN Reason: SEE COMMENTS Stop: 07/06/19 15:22 Last Admin: 01/04/19 23:51 Dose: 2,600 unit Documented by: Lactated Ringer's (Lactated Ringers) 1,000 mls @ 100 mls/hr IVC .Q10H JOYCELYN Stop: 01/05/19 13:59 Last Admin: 01/05/19 08:21 Dose: 100 mls/hr Documented by: Heparin Sodium/Dextrose (Heparin 25,000 Unit/250 Ml D5w) 25,000 unit in 250 mls @ 10.57 mls/hr IVC .[id number] PENDING SALE TO [facility]; Protocol Stop: 07/06/19 15:31 Last Titration: 01/05/19 06:00 Dose: 16 unit/kg/hr, 12.1 mls/hr Documented by: Sodium Chloride (0.9 % Sodium Chloride) 1,000 mls @ 150 mls/hr IVC .Q6H40M PENDING SALE TO [facility] Stop: 01/05/19 15:39 Metoprolol Tartrate (Lopressor) 12.5 mg PO BID PENDING SALE TO [facility] Stop: 07/06/19 15:17 Last Admin: 01/05/19 08:18 Dose: 12.5 mg Documented by: Naloxone HCl (Narcan) 0.4 mg IVP Q2MPRN PRN PRN Reason: SEE COMMENTS Stop: 07/05/19 22:42 Tamsulosin HCl (Flomax) 0.4 mg PO DAILY PENDING SALE TO [facility]; Protocol Stop: 07/06/19 09:01 Last Admin: 01/05/19 08:18 Dose: 0.4 mg Documented by: - Imaging and Cardiology Echo: report reviewed - EKG Interpretation EKG results cardiology: personally reviewed (A-Fib RVR rate 140s, RBBB), other (12 hr tele AVG HR 66, PAF) Consult Discharge Plan - Plan Referrals: NONE,PCP [Primary Care Provider] - <Areli Logan - Last Filed: 01/05/19 20:47> Date of Encounter: 01/05/19 - Attending Attestation Patient was seen and evaluated independently by me. Findings, assessment and plan were discussed at length with patient, questions answered. Agree with nurse practitioner's/resident's documentation. Addition as follows, 83yoCM ho BPH. P/w pleuritic cp with acute uremia 2/2 BPH related obstructive uropathy which resolved on Hernandez. Consulted for new Afib RVR. Rate ctr ok now on BB. On heparin drip. TTE preserved LVEF, RV nl, mild MR, no PH. Neg trop. A: New AFib RVR, rate now ok, on heparin drip Resolved MARIVEL after Hernandez for obstructive uropathy due to BPH P: BB for rate ctr warfarin based on insurance Areli Logan MD, PhD Assessment and Plan Discussion w patient/family: The assessment and plan as outlined above was discussed with the patient and/or family members who expressed understanding and agreement. All questions were answered. Thank you for involving us in the care of your patient. Please call with any questions. History of Present Illness History of present illness: Mr. Root is a 83 year old male All Systems Review: The remainder of the systems were reviewed and are negative Physical Examination Vital Signs, Last 4 Hours Temp Pulse Resp BP Pulse Ox 01/05/19 18:49 98.5 F 59 17 145/70 97 01/05/19 17:01 98.4 F 66 18 147/65 97 Results 01/05/19 04:52 01/05/19 04:52 Lab Results 01/05/19 01/05/19 04:52 04:52 WBC 5.2 Hgb 11.6 L Hct 34.5 L Plt Count 272 Sodium 145 Potassium 4.0 Chloride 111 H Carbon Dioxide 20 L BUN 18 Creatinine 1.08 Glucose 93 Calcium 8.9
--- NOTE | 2019-01-05 15:19 | Electrocardiograph Report ---
[place] [id number] Test Date: 2019-01-04 Pat Name: Chuck Root Department: 112 Room: 2A Gender: M Intelligence Analyst: : [id number] Requested By: Jessika Lemus Order Number: [id number] Reading MD: Herminio Rausch Measurements Intervals [place] Rate: 155 P: [place]: 0 QRS: 78 QRSD: 141 T: 7 QT: 320 QTc: 407 Interpretive Statements ATRIAL FIBRILLATION WITH RAPID VENTRICULAR RESPONSE RIGHT BUNDLE BRANCH BLOCK Electronically Signed On 01-05-2019 15:17:34 EDT by Herminio Rausch
--- NOTE | 2019-01-05 15:47 | Internal Med Progress Note ---
Hospitalist Progress Note - Encounter Date of Encounter: 01/05/19 Time of Encounter: 10:10 - Subjective Interval History: No major events overnight. Patient was seen this a.m. He denied fever, chills or night sweats. He has no nausea, vomiting or abdominal pain. Patient denied chest pain, shortness of breath or palpitation. - Exam Vitals: Temp Pulse Resp BP Pulse Ox 98.8 F 60 18 114/55 96 01/05/19 11:04 01/05/19 11:04 01/05/19 11:04 01/05/19 11:04 01/05/19 11:04 Exam: General: Patient is alert, oriented 3. Head: Atraumatic, normal inspection, normocephalic. Eye: EOMI, PERRLA, no scleral icterus noted. ENT: Mucous membranes moist. No odontogenic infection noted. Neck: Normal inspection, no meningismus. Respiratory: No respiratory distress, rhonchi, or wheezes noted. Cardiovascular: Regular rate and regular rhythm, S1 and S2 audible. No murmurs, rubs, or gallops. GI: Soft, nondistended, normal bowel sounds. Extremities:No joint swelling, pedal edema, or tenderness noted. Neurological: Alert, oriented 3, no focal deficits. Psychiatric: normal affect, normal mood. Skin: Macular popular rash over his lower abdomen, inner thighs improving from yesterday - Assessment and Plan (1) Atrial fibrillation with RVR Current Visit: Yes Status: Resolved (2) MARIVEL (acute kidney injury) Current Visit: Yes Status: Acute (3) Skin rash Current Visit: Yes Status: Acute (4) Urinary retention with incomplete bladder emptying Current Visit: Yes Status: Acute - Summary of Assessment and Plan Summary of Assessment and Plan: 83-year-old male with history of urinary retention, prostatomegaly who came into the hospital as a transfer from [place] after he presented with chest pain, and generalized skin rash. Patient had a history of urinary retention and he wa s admitted to the hospital last month when he was discharged home on Flomax and indwelling urinary catheter. He followed with urology as outpatient and he passed a voiding trial. However, he noted decrease in his urination along with abdominal distention. When he presented to the ER, Hernandez was placed and 1400 mL of urine was drained. His symptoms were managed as following: Urinary retention: - 2/2 BPH as per urology. His PSA last visit was 2.2. - As per urology, he would require indwelling Hernandez catheter for at least one week and arrange for outpatient follow-up. Continue with Flomax and finasteride. MARIVEL: Resolved - 2/2 above - Creatinine was 13.7 at admission, today 1.08 - Continue with Ringer lactate at rate of 125 mL per hour - Check BMP tomorrow. Continue renal diet A. fib with RVR: - TTE with EF 60%, mild ED, mild MR. troponin is negative 2, continue cardiac tech. - Started the patient on heparin drip, will check pricing for anticoagulation if cardiology agrees given patient's low CHADvasc2 score - on 12.5 mg po lopressor for rate control, cardiology recommended Coumadin at discharge given high prices for NOAC. Skin rash: Improving -likely allergic reaction to BACTRIM which added to allergy list. - will continue to monitor. DVT PPX: on heparin gtt. I reviewed independently all laboratory workup, pertinent images including x- rays and CT scans. I also reviewed independently and EKGs and my findings are in the body of my assessment and plan. I ordered the laboratory workup and images myself. I discussed finding with patient's, their families, RN's and consultants involved in the care of the patient. - Time Spent with Patient Total time spent is greater than 50% in coordination of care (as documented) at patient's floor/unit and/or counseling patient: Plan of Care Discussed with: patient Internal Medicine: Result - Labs CBC & Chem 7: 01/05/19 04:52 01/05/19 04:52 Labs: Short CBC 01/04/19 01/05/19 Range/Units 15:52 04:52 WBC 6.3 5.2 (4.3-11.1) K/mcL Hgb 11.5 L 11.6 L (12.9-16.9) g/dL Hct 34.8 L 34.5 L (37.5-50.1) % Plt Count 288 272 (140-400) K/mcL BMP 01/05/19 04:52 Sodium 145 Potassium 4.0 Chloride 111 H Carbon Dioxide 20 L BUN 18 Creatinine 1.08 Glucose 93 Calcium 8.9 Cardiac Enzymes 08/07/19 Range/Units 15:52 Troponin I < 0.03 (< 0.04) ng/mL - ABG Interpretation ABG results: PT/INR, D-dimer PT 13.6 Seconds (9.4-12.1) H 01/04/19 15:52 - Impressions Impressions Echocardiogram 01/04/19 15:15 Impressions: LVEF 60%. Basal sigmoid septum. Mild left ventricular diastolic dysfunction. Normal right ventricular structure and function. Mild mitral regurgitation. No pulmonary hypertension. Left Ventricular Wall Motion: Rest Echo Findings All wall segments showed normal motion. Findings: Study Quality * Technically adequate exam. ECG Findings * Normal sinus rhythm. Left Ventricle * LVEF 60%. * Basal sigmoid septum. * Mild left ventricular diastolic dysfunction. * LV chamber size is normal. Right Ventricle * Normal right ventricular structure and function. Left Atrium * Moderately dilated left atrium. Right Atrium * Normal right atrial size. Aortic Valve * Trace aortic regurgitation. * Aortic valve leaflets not well visualized. * Moderately calcified aortic valve leaflets. * No aortic stenosis. Mitral Valve * No mitral stenosis. * Mild mitral regurgitation. * Normal mitral valve structure. Tricuspid Valve * Tricuspid valve not well visualized. * No tricuspid regurgitation. Pulmonic Valve * Pulmonic valve is not well visualized. * No pulmonic stenosis. * No pulmonic regurgitation. Pulmonary Artery * Pulmonary artery not well visualized. Aorta * Normally sized aortic root. Pericardium * There is no pericardial effusion present. Interatrial Septum * No evidence of PFO by color Doppler. IVC * Normal IVC dimensions and inspiratory collapse. Consult Discharge Plan - Plan Referrals: NONE,PCP [Primary Care Provider] -
[2019-01-05] MEDS: Heparin 25,000 UNIT/250 ML D5W 25,000 UNIT/250 ML IV.SOLN IVC SCH (16:56)
[2019-01-05] MEDS ORDERED: *HR* Warfarin 5 MG TABLET PO ONE (18:00)
[2019-01-05] MEDS ORDERED: Warfarin perPT PO SCH (18:00)
[2019-01-05] MEDS ORDERED: *HR* Warfarin 10 MG TABLET PO ONE (18:00)
[2019-01-06 04:10] LABS: Hematocrit 36.3 % (37.5-50.1); Mean Corpuscular HGB Conc 33.1 g/dL (31.6-35.5); Mean Corpuscular Hemoglobin 28.6 pg (28.0-33.3); Mean Corpuscular Volume 86.4 fL (83.0-100.0); Mean Platelet Volume 10.2 fL (9.4-12.4); Platelet Count 286 K/mcL (140-400); Red Cell Distribution Width 13.3 % (11.5-14.5); White Blood Count 5.4 K/mcL (4.3-11.1)
[2019-01-06 04:18] LABS: INR 1.1; Prothrombin Time 12.6 Seconds (9.4-12.1)
[2019-01-06 04:29] LABS: BUN/Creatinine Ratio 11 (6-26); Blood Urea Nitrogen 9 mg/dL (8-23); Calcium 8.6 mg/dL (8.6-10.3); Carbon Dioxide 21 mEq/L (23-29); Chloride 112 mEq/L (98-107); Glucose 91 mg/dL (70-105); Osmolality,Calculated 290 (280-300); Potassium 3.6 mEq/L (3.5-5.1); Sodium 141 mEq/L (136-145); eGFR For African Americans > 60 (> 60); eGFR For Non-African Americans > 60 (> 60)
[2019-01-06 06:58] VITALS: BP 152/84
[2019-01-06] MEDS: Finasteride 5 MG TABLET PO SCH (08:04)
--- NOTE | 2019-01-06 10:24 | Discharge Summary ---
- NOTES TO OUTPATIENT PROVIDER Notes to Outpatient Provider: Patient came in with urinary retention and acute kidney failure. He was started on finasteride and continue his Flomax. He will be discharged with Hernandez catheter and follow with urology in 1 week for voiding trial. He also developed new onset A. fib and he was started on Lopressor and Coumadin. Patient will be followed by Coumadin clinic. Date of Encounter: 01/06/19 Time of Encounter: 09:00 - Discharge Diagnosis (1) Atrial fibrillation with RVR Priority: Secondary Status: Resolved (2) MAIRVEL (acute kidney injury) Priority: Secondary Status: Resolved (3) Skin rash Priority: Secondary Status: Resolved (4) Urinary retention with incomplete bladder emptying Priority: Primary Status: Acute Hospital course: 83-year-old male with history of urinary retention, prostatomegaly who came into the hospital due to abdominal distention and generalized skin rash. Patient had a history of urinary retention and he was admitted to the hospital last month when he was discharged home on Flomax and indwelling urinary catheter. He followed with urology as outpatient and he passed a voiding trial. However, he noted decrease in his urination along with abdominal distention. Patient was followed by a urology service who suggested to continue Flomax and add finasteride and keep Hernandez in until he is seen as outpatient by a urologist for voiding trial. Patient also had acute kidney failure at presentation her creatinine 13.7 however it improved with IV fluids and his creatinine went back to normal. He also had macropapuloar skin rash was related to recent Bactrim use. His rash improved significantly upon discharge. Condition developed new onset A. fib while in the hospital, his troponin was negative 2,TTE with EF 60%, mild ED, mild MR. cardiology was consulted and patient was placed on 12.5 mg Lopressor twice a day and was started on Coumadin. Arrangements were made to follow up with Coumadin clinic as outpatient. Today, patient is hemodynamically stable. He will be discharged home in stable condition. He will follow with his family doctor and a urologist and appointments were made. Discharge discussed with: patient - Time Spent with Patient Total time spent providing and/or coordinating discharge services: 45 minutes - Discharge Medications Prescriptions: New Warfarin [Coumadin] 5 mg PO 1800 #30 tablet Tamsulosin [Flomax] 0.4 mg PO DAILY #30 capsule Metoprolol [Lopressor] 12.5 mg PO BID #60 tablet Finasteride [Proscar] 5 mg PO DAILY #30 tablet Discontinued Tamsulosin [Flomax] 0.4 mg PO DAILY #30 capsule Home Medications: Finasteride [Proscar] 5 mg PO DAILY #30 tablet 01/06/19 [Rx] Metoprolol [Lopressor] 12.5 mg PO BID #60 tablet 01/06/19 [Rx] Tamsulosin [Flomax] 0.4 mg PO DAILY #30 capsule 01/06/19 [Rx] Warfarin [Coumadin] 5 mg PO 1800 #30 tablet 01/06/19 [Rx] Allergies/Adverse Reactions: Allergy/AdvReac Type Severity Reaction Status Date / Time sulfamethoxazole AdvReac See Verified 01/04/19 12:13 [From Bactrim] Comments trimethoprim [From Bactrim] AdvReac See Verified 01/04/19 12:13 Comments Date of admission: 01/04/19 09:08 Primary care physician: PCP NONE Consults: 01/04/19 05:11 Consult to Urology [CONS] Stat Consulting Provider: Urology Misti Reason for Consult: MARIVEL secondary to obstruction; history of bladder obstruction due to BPH Call Completed: No 01/04/19 05:14 Consult to Nephrology [CONS] Routine Consulting Provider: Kidney Misti/NIMA/CAMILLA/MAXIMILIAN Reason for Consult: MARIVEL; history of MARIVEL secondary to obstruction Call Completed: No 01/04/19 05:15 Consult to Dialysis [CONS] ONCE 01/04/19 15:16 Consult to Cardiology [CONS] Routine Comment: Consulting Provider: Cardiology Misti Reason for Consult: new noel Heard Call Completed: No - Constitutional Vitals: Temp Pulse Resp BP Pulse Ox 98.3 F 61 18 152/84 96 01/06/19 06:57 01/06/19 06:57 01/06/19 06:57 01/06/19 06:57 01/06/19 06:57 Exam: General: Patient is alert, oriented 3. Head: Atraumatic, normal inspection, normocephalic. Eye: EOMI, PERRLA, no scleral icterus noted. ENT: Mucous membranes moist. No odontogenic infection noted. Neck: Normal inspection, no meningismus. Respiratory: No respiratory distress, rhonchi, or wheezes noted. Cardiovascular: Regular rate and regular rhythm, S1 and S2 audible. No murmurs, rubs, or gallops. GI: Soft, nondistended, normal bowel sounds. Extremities:No joint swelling, pedal edema, or tenderness noted. Neurological: Alert, oriented 3, no focal deficits. Psychiatric: normal affect, normal mood. Skin: Macular popular rash over his lower abdomen, inner thighs improving from yesterday - Patient Status Disposition: Home, Self-Care Condition: Good Functional capacity at discharge: independent ambulation Overall status at discharge: patient is back to baseline - Discharge Instructions Follow Up With: Tristan Gresham MD [Partnered Physician] - 01/11/19 9:00 am (Please follow up as schedule...) Shreyas Henley MD [Partnered Physician] - 01/16/19 10:00 am (Please fpllow up as schedule...) - Diet and Activity Activity: resume usual activities as tolerated Diet: low salt diet
[2019-01-06] MEDS ORDERED: *HR* Warfarin 5 MG TABLET PO ONE (18:00)
== END 2019-01-06 13:25 | disposition home or self-care (01) | DRG 683 ==
LOC: 2ANU → SUATTDRO 22:22
PROVIDERS: ADMIT Internal Medicine; ATTEND Internal Medicine